=== PATIENT | male | born 1960 | race Caucasian/White ===

== ENCOUNTER 2020-08-17 19:49 | Inpatient (IN) ==
--- NOTE | 2020-08-17 20:11 | Emergency Department Note ---
Impression & Plan Dizziness, Bradycardia, DINESH (acute kidney injury), Hyperammonemia ED Provider Note NAME: BREA CHILDRESS AGE: 59 SEX: M : 1960 ARRIVES VIA: Walk-In INFORMANT: [Patient] ED PROVIDER(S): [Flex Ayoub MD] CHIEF COMPLAINT: Dizziness HISTORY OF PRESENT ILLNESS: The patient is a 59-year-old male who states that for 1.5 hours he has been dizzy and lightheaded. He feels worse to stand. No one-sided weakness, he has not had any speech slur. No fever, chills, cough. He is mildly short of breath but this has been an ongoing issue. He has not had vomiting or diarrhea or abdominal pain. The patient states that he takes 4 medications for blood pressure and, was thinking maybe these hit him too hard today. [facility] as his heart rate was about 45 and typically his heart rate is about 60-80. The patient denies any chest pain. He states he did have a fistula placed in his left upper extremity about a month ago. He is not yet using the fistula but was told that he may soon need to move to dialysis. Of note, the blood pressure at home was 110/51 per his monitor. REVIEW OF SYSTEMS: See HPI for pertinent positives and negatives. A total of ten systems were reviewed and were otherwise negative. PMHx/PSHx: See Below SOCIAL HISTORY: See Below. PHYSICAL EXAM: GENERAL: Patient is in no acute distress. HEENT: No acute trauma, normocephalic atraumatic, mucous membranes moist, no nasal congestion, no scleral icterus. NECK: No stridor, no adenopathy, no meningismus, trachea is midline. LUNGS: Clear to auscultation bilaterally, no wheeze, no rhonchi, breath sounds equal. HEART: Bradycardic, regular rhythm, no murmurs. ABDOMEN: Soft, nontender, bowel sounds positive, no hernias, no peritonitis. EXTREMITIES: No cyanosis, moderate bilateral pedal edema, full range of motion of all the joints without pain or difficulty, no signs for acute trauma. NEUROLOGIC: Oriented x 3, no acute motor or sensory deficits, no focal weakness. No speech slur or facial droop. No cerebellar dysfunction or extremity drift. SKIN: No rash, no jaundice, no diaphoresis. DIFFERENTIAL DIAGNOSIS: Infection, dehydration, metabolic abnormality, hypo/hyperglycemia, orthostasis, medication reaction, dysrhythmia, electrolyte disturbance, anemia, hypoxia, cardiac sources, intracerebral event, toxicologic issues, stroke, TIA, as well as other pathologies. EMERGENCY DEPARTMENT COURSE/PROCEDURES: ECG: Indication was dizziness. The ECG shows a sinus bradycardia with a rate of 49. There is no ST elevation, no PVCs. The QTc is 375. No old ECGs available for comparison. Continuous Cardiac Monitoring: An order was placed for continuous cardiac monitoring. The monitor shows a rate of 50 with sinus bradycardia. Orthostatic vital signs were negative. Critical Care Note: I have personally spent 36 minutes of critical care time in the direct management of this patient. This includes bedside care, inter pretation of diagnostic studies, and testing, discussion with consultants, patient, and family members, and other required patient management activities. This 36 minutes is in excess of all separately billable procedures. MEDICAL DECISION MAKING: There is no leukocytosis. The patient is somewhat anemic with a hemoglobin of 11.5. Platelet count was normal. Creatinine was quite high at 4.6. BUN was elevated at 63. The creatinine value today is higher than his baseline. Alk phos was elevated. Ammonia was elevated at 38. Patient appeared to be in a euthyroid state. ECG shows a sinus bradycardia, no ST elevation. Cardiac enzyme testing x1 is not consistent with acute cardiac injury. Chest film did not show pneumonia or CHF. Covid testing returned negative. The patient presents dizzy and somewhat weak. He was bradycardic. Orthostatic vital signs were performed and were technically negative. The patient has acute kidney injury, he does have issues with his kidneys at baseline but his creatinine number today is higher than his typical values. He is also bradycardic today and normally, his heart rate is in the 60s to 80s. I think both the renal failure and bradycardia are contributing to his complaints. I do believe hospitalization is warranted. He needs monitoring. I did speak with the patient and case management. The on-call hospitalist has been consulted. Past Med/Surg History Medical History Anemia Celiac disease follows gluten free diet Charcot foot due to diabetes mellitus Chronic kidney disease, stage 4 (severe) Cough syncope Diabetes mellitus, type 2 insulin dependent for 17yrs Gastroparesis due to secondary diabetes History of kidney stones Hyperlipidemia Hypertension Insulin pump in place Osteoarthritis Sleep apnea cpap Surgical History History of amputation of lesser toe of left foot 2nd toe History of colonoscopy History of esophagogastroduodenoscopy (EGD) History of foot surgery right, hardware in place History of surgical procedure on eye proper using laser x2 on bilt eyes History of vitrectomy left History of wisdom tooth extraction Family History Mother Family history of diabetes mellitus Grandfather (Maternal) Family history of diabetes mellitus Grandmother (Paternal) Family history of diabetes mellitus Grandmother (Maternal) Family history of diabetes mellitus Other No family history of adverse response to anesthesia Social History Smoking Status: Former smoker Second Hand Exposure: Yes (parents smoked); Hx Alcohol Use: Yes Alcohol type: other Hx Substance Use: No Preferred Language: Welsh Communication Ability: Effective Supervisor [employer] Required: No Beliefs That Will Affect Care: None Current Living Situation: Family Feels Safe at Home: Yes Assistive Devices: Cane, CPAP and Glasses Allergies Allergies Allergy/AdvReac Type Severity Reaction Status Date / Time melon Allergy Severe Anaphylaxis Verified 08/17/20 21:00 pecan nut Allergy Severe Anaphylaxis Verified 08/17/20 21:00 walnut Allergy Severe Anaphylaxis Verified 08/17/20 21:00 Opioids - Morphine Analogues Allergy Mild Vomiting Verified 08/17/20 21:00 Home Meds Home Medications Medication Instructions Recorded Confirmed cholecalciferol (vitamin D3) 1,000 unit PO BID 01/29/20 08/17/20 [Vitamin D3] insulin aspart U-100 1 sliding scale dose SUBCUT 01/29/20 08/17/20 USEASDIRECTD losartan 100 mg PO QAM 01/29/20 08/17/20 acetaminophen 650 mg PO Q12H PRN 08/17/20 08/17/20 aspirin [Aspirin Low Dose] 81 mg PO DAILY 08/17/20 08/17/20 atorvastatin 20 mg PO QPM 08/17/20 08/17/20 diclofenac sodium 2 g TOPICAL QID PRN 08/17/20 08/17/20 diltiazem HCl 360 mg PO DAILY 08/17/20 08/17/20 hydralazine 50 mg PO TID 08/17/20 08/17/20 insulin glargine [Lantus U-100 67 unit SUBCUT DAILY PRN 08/17/20 08/17/20 Insulin] loperamide 2 mg PO QID PRN 08/17/20 08/17/20 omeprazole 20 mg PO DAILY 08/17/20 08/17/20 terazosin 2 mg PO HS 08/17/20 08/17/20 torsemide 40 mg PO DAILY 08/17/20 08/17/20 Results & Data (ED) Vital Signs Vital Signs - 24 hr 08/17/20 19:51 08/17/20 20:14 08/17/20 20:25 Temperature 36.4 C L Temperature Source Temporal Artery Scan Pulse Rate - Lying 45 L Pulse Rate - Sitting 48 L Pulse Rate - Standing 61 Pulse Rate 50 L Pulse Rate from SpO2 Sensor Respiratory Rate 18 Blood Pressure - Lying 158/62 H Blood Pressure - Sitting 146/56 H Blood Pressure- Standing 142/49 H Blood Pressure 153/65 H Blood Pressure Mean 94 Blood Pressure Position Sitting Pulse Oximetry 97 96 Oxygen Delivery Method Room Air Room Air Sepsis Recent Fever Within 48 Hours No Sepsis New/Unexplained Change in Mental Status No Sepsis Action Taken by Nursing No Action Required 08/17/20 20:30 08/17/20 21:00 08/17/20 21:30 Temperature Temperature Source Pulse Rate - Lying Pulse Rate - Sitting Pulse Rate - Standing Pulse Rate 47 L 47 L 45 L Pulse Rate from SpO2 Sensor 46 L 57 L 45 L Respiratory Rate 17 13 14 Blood Pressure - Lying Blood Pressure - Sitting Blood Pressure- Standing Blood Pressure 143/55 H 163/67 H 164/69 H Blood Pressure Mean 84 99 100 Blood Pressure Position Pulse Oximetry 96 97 96 Oxygen Delivery Method Room Air Room Air Sepsis Recent Fever Within 48 Hours Sepsis New/Unexplained Change in Mental Status Sepsis Action Taken by Nursing 08/17/20 22:00 08/17/20 22:30 08/17/20 23:00 Temperature Temperature Source Pulse Rate - Lying Pulse Rate - Sitting Pulse Rate - Standing Pulse Rate 45 L 46 L 49 L Pulse Rate from SpO2 Sensor 45 L 46 L 49 L Respiratory Rate 12 14 17 Blood Pressure - Lying Blood Pressure - Sitting Blood Pressure- Standing Blood Pressure 147/63 H 160/69 H 151/64 H Blood Pressure Mean 91 99 93 Blood Pressure Position Pulse Oximetry 96 96 95 Oxygen Delivery Method Room Air Room Air Room Air Sepsis Recent Fever Within 48 Hours Sepsis New/Unexplained Change in Mental Status Sepsis Action Taken by Usp Medications Current Medication List: was personally reviewed by me Laboratory Data Attestation: I reviewed the patient's lab results. Result diagrams: 08/17/20 20:10 08/17/20 21:07 Lab Results 08/17/20 08/17/20 08/17/20 Range/Units 20:10 20:10 20:10 WBC 9.31 (4.8-10.8) K/uL RBC 3.98 L (4.7-6.1) M/uL Hgb 11.5 L (14.0-18.0) g/dL Hct 33.4 L (42-52) % MCV 83.9 (80-100) fL MCH 28.9 (25-34) pg MCHC 34.4 (32-36) g/dL RDW Std Deviation 40.0 (36.4-46.3) fL RDW Coeff of Eduardo 13.3 (11.5-14.5) % Plt Count 257 (130-400) K/uL MPV 10.5 H (7.4-10.4) fL Immature Gran % (Auto) 0.4 % Neut % (Auto) 56.1 % Lymph % (Auto) 33.3 % [place] % (Auto) 7.8 % Eos % (Auto) 2.1 % Baso % (Auto) 0.3 % Neut # (Auto) 5.21 (1.4-6.5) K/uL Lymph # (Auto) 3.10 (1.2-3.4) K/uL [place] # (Auto) 0.73 H (0.11-0.59) K/uL Eos # (Auto) 0.20 (0-0.5) K/uL Baso # (Auto) 0.03 (0-0.2) K/uL Immature Gran # (Auto) 0.04 H (0.00-0.02) K/uL Sodium 137 (136-145) mmol/L Potassium (3.5-5.1) mmol/L Chloride 106 (98-107) mmol/L Carbon Dioxide 22 (21-32) mmol/L Anion Gap 10.0 (3-11) BUN 63 H (7-18) mg/dl Creatinine 4.60 H* (0.6-1.4) mg/dl Est Cr Clr Drug Dosing 23.7 ml/min Est GFR ( Amer) 15.1 Est GFR (Non-Af Amer) 13.1 BUN/Creatinine Ratio 13.7 (10-20) Glucose 146 H (70-99) mg/dl Calcium 8.9 (8.5-10.1) mg/dl Magnesium (1.8-2.4) mg/dl Total Bilirubin 0.6 (0.2-1) mg/dl AST (15-37) U/L ALT 31 (12-78) U/L Alkaline Phosphatase 136 H (45-117) U/L Ammonia (11-32) umol/L Troponin I < 0.015 (0-0.045) ng/ml Total Protein 7.6 (6.4-8.2) gm/dl Albumin 3.6 (3.4-5.0) gm/dl Globulin 4.0 (2.5-4.0) gm/dl Albumin/Globulin Ratio 0.9 (0.9-2) TSH 3.130 (0.300-4.500) uIu/ml COVID-19 Eval Order SARS-CoV-2, RNA, NAAT (NEGATIVE) 08/17/20 08/17/20 08/17/20 Range/Units 21:07 21:07 22:40 WBC (4.8-10.8) K/uL RBC (4.7-6.1) M/uL Hgb (14.0-18.0) g/dL Hct (42-52) % MCV (80-100) fL MCH (25-34) pg MCHC (32-36) g/dL RDW Std Deviation (36.4-46.3) fL RDW Coeff of Eduardo (11.5-14.5) % Plt Count (130-400) K/uL MPV (7.4-10.4) fL Immature Gran % (Auto) % Neut % (Auto) % Lymph % (Auto) % [place] % (Auto) % Eos % (Auto) % Baso % (Auto) % Neut # (Auto) (1.4-6.5) K/uL Lymph # (Auto) (1.2-3.4) K/uL [place] # (Auto) (0.11-0.59) K/uL Eos # (Auto) (0-0.5) K/uL Baso # (Auto) (0-0.2) K/uL Immature Gran # (Auto) (0.00-0.02) K/uL Sodium (136-145) mmol/L Potassium 4.5 (3.5-5.1) mmol/L Chloride (98-107) mmol/L Carbon Dioxide (21-32) mmol/L Anion Gap (3-11) BUN (7-18) mg/dl Creatinine (0.6-1.4) mg/dl Est Cr Clr Drug Dosing ml/min Est GFR ( Amer) Est GFR (Non-Af Amer) BUN/Creatinine Ratio (10-20) Glucose (70-99) mg/dl Calcium (8.5-10.1) mg/dl Magnesium 2.4 (1.8-2.4) mg/dl Total Bilirubin (0.2-1) mg/dl AST 13 L (15-37) U/L ALT (12-78) U/L Alkaline Phosphatase (45-117) U/L Ammonia 38.0 H (11-32) umol/L Troponin I (0-0.045) ng/ml Total Protein (6.4-8.2) gm/dl Albumin (3.4-5.0) gm/dl Globulin (2.5-4.0) gm/dl Albumin/Globulin Ratio (0.9-2) TSH (0.300-4.500) uIu/ml COVID-19 Eval Order Covid19 [facility] SARS-CoV-2, RNA, NAAT (NEGATIVE) 08/17/20 Range/Units 22:40 WBC (4.8-10.8) K/uL RBC (4.7-6.1) M/uL Hgb (14.0-18.0) g/dL Hct (42-52) % MCV (80-100) fL MCH (25-34) pg MCHC (32-36) g/dL RDW Std Deviation (36.4-46.3) fL RDW Coeff of Eduardo (11.5-14.5) % Plt Count (130-400) K/uL MPV (7.4-10.4) fL Immature Gran % (Auto) % Neut % (Auto) % Lymph % (Auto) % [place] % (Auto) % Eos % (Auto) % Baso % (Auto) % Neut # (Auto) (1.4-6.5) K/uL Lymph # (Auto) (1.2-3.4) K/uL [place] # (Auto) (0.11-0.59) K/uL Eos # (Auto) (0-0.5) K/uL Baso # (Auto) (0-0.2) K/uL Immature Gran # (Auto) (0.00-0.02) K/uL Sodium (136-145) mmol/L Potassium (3.5-5.1) mmol/L Chloride (98-107) mmol/L Carbon Dioxide (21-32) mmol/L Anion Gap (3-11) BUN (7-18) mg/dl Creatinine (0.6-1.4) mg/dl Est Cr Clr Drug Dosing ml/min Est GFR ( Amer) Est GFR (Non-Af Amer) BUN/Creatinine Ratio (10-20) Glucose (70-99) mg/dl Calcium (8.5-10.1) mg/dl Magnesium (1.8-2.4) mg/dl Total Bilirubin (0.2-1) mg/dl AST (15-37) U/L ALT (12-78) U/L Alkaline Phosphatase (45-117) U/L Ammonia (11-32) umol/L Troponin I (0-0.045) ng/ml Total Protein (6.4-8.2) gm/dl Albumin (3.4-5.0) gm/dl Globulin (2.5-4.0) gm/dl Albumin/Globulin Ratio (0.9-2) TSH (0.300-4.500) uIu/ml COVID-19 Eval Order SARS-CoV-2, RNA, NAAT NEGATIVE (NEGATIVE) Imaging Data Attestation: I personally reviewed and interpreted this imaging study as follows: My Impression: Chest x-ray: There is some mild cardiomegaly, no CHF, pneumonia or pneumothorax. Discharge Plan Visit Data Chief Complaint: Dizziness Stated Complaint: LIGHTHEADED ED Provider: Flex Ayoub Discharge Problem: Dizziness, Bradycardia, DINESH (acute kidney injury), Hyperammonemia Patient Disposition: Admitted As Inpatient Condition: Fair Forms Stand Alone Forms: My [facility] Prescriptions Prescriptions: No Action losartan 100 mg Tablet 100 mg PO QAM RF: 0 insulin aspart U-100 100 unit/mL Cartridge 1 sliding scale dose SUBCUT USEASDIRECTD RF: 0 cholecalciferol (vitamin D3) [Vitamin D3] 25 mcg (1,000 unit) Tablet 1,000 unit PO BID RF: 0 hydralazine 50 mg Tablet 50 mg PO TID RF: 0 atorvastatin 40 mg Tablet 20 mg PO QPM RF: 0 Lantus U-100 Insulin 100 unit/mL Solution 67 unit SUBCUT DAILY PRN (Reason: Humalog Pump Failure) RF: 0 loperamide 2 mg Tablet 2 mg PO QID PRN (Reason: Diarrhea) RF: 0 torsemide 10 mg Tablet 40 mg PO DAILY RF: 0 aspirin [Aspirin Low Dose] 81 mg Tablet,Delayed Release (Dr/Ec) 81 mg PO DAILY RF: 0 acetaminophen 650 mg Tablet Extended Release 650 mg PO Q12H PRN (Reason: Pain) RF: 0 terazosin 2 mg Tablet 2 mg PO HS RF: 0 diltiazem HCl 360 mg Tablet Extended Release 24 Hr 360 mg PO DAILY RF: 0 diclofenac sodium 1 % Gel 2 g TOPICAL QID PRN (Reason: Joint Pain) RF: 0 omeprazole 20 mg Tablet,Delayed Release (Dr/Ec) 20 mg PO DAILY RF: 0 Referrals Referrals: Dimitry France MD [Primary Care Provider] -
[2020-08-17 20:29] LABS: Basophils # (auto) 0.03 K/uL (0-0.2); Basophils % (auto) 0.3 %; Eosinophils % (auto) 2.1 %; Hematocrit (blood only) 33.4 % (42-52); Hemoglobin 11.5 g/dL (14.0-18.0); Immature Granulocytes # (auto) 0.04 K/uL (0.00-0.02); Immature Granulocytes % (auto) 0.4 %; Lymphocytes % (auto) 33.3 %; Mean Corpuscular Hemoglobin 28.9 pg (25-34); Mean Corpuscular Hgb Conc 34.4 g/dL (32-36); Mean Corpuscular Volume 83.9 fL (80-100); Mean Platelet Volume 10.5 fL (7.4-10.4); Monocytes # (auto) 0.73 K/uL (0.11-0.59); Monocytes % (auto) 7.8 %; Neutrophils # (auto) 5.21 K/uL (1.4-6.5); Neutrophils % (auto) 56.1 %; Platelet Count 257 K/uL (130-400); RDW Coefficient of Variation 13.3 % (11.5-14.5); Red Blood Count 3.98 M/uL (4.7-6.1); White Blood Count 9.31 K/uL (4.8-10.8)
[2020-08-17 20:57] LABS: Alanine Aminotransferase 31 U/L (12-78); Albumin Globulin Ratio 0.9 (0.9-2); Albumin Level 3.6 gm/dl (3.4-5.0); Alkaline Phosphatase 136 U/L (45-117); BUN Creatinine Ratio 13.7 (10-20); Bilirubin,Total 0.6 mg/dl (0.2-1); Blood Urea Nitrogen 63 mg/dl (7-18); Calcium 8.9 mg/dl (8.5-10.1); Carbon Dioxide 22 mmol/L (21-32); Chloride 106 mmol/L (98-107); Creatinine Clr Calc Pharmacy 23.7 ml/min; Est GFR (African American) 15.1; Est GFR (Non-African American) 13.1; Glucose 146 mg/dl (70-99); Sodium 137 mmol/L (136-145); Total Protein 7.6 gm/dl (6.4-8.2); Troponin I < 0.015 ng/ml (0-0.045)
[2020-08-17 21:31] LABS: Potassium 4.5 mmol/L (3.5-5.1)
[2020-08-17 21:36] LABS: Magnesium 2.4 mg/dl (1.8-2.4)
--- NOTE | 2020-08-17 23:48 | History & Physical Report ---
Date of Service August 17, 2020 Assessment & Plan (1) DINESH (acute kidney injury): 59-year-old male past medical history significant for CKD stage IV, EVERETTE, hyperlipidemia, hypertension, DM 2, anemia of chronic disease admitted for symptomatic bradycardia and acute on chronic renal failure. Symptomatic bradycardia: - On arrival with heart rate mid 40s, now low 50s. With improvement in symptoms with increase in HR. - Patient did not endorse taking extra CCB, or extra doses of any of his other antihypertensive medications. - Troponin negative, EKG shows sinus bradycardia without other analysis. - Bradycardia suspected to be secondary to uremia from acute on chronic renal failure. Ammonia in the ER noted to be 38. - Cardiology consult requested, TTE ordered for morning. - Will hold carvedilol given bradycardia. Continue home aspirin, suspect this is for cardioprotection, however no history of CAD in chart. - Unable to get records from [place] at nighttime, would be of benefit to see last echo, most recent lab work, nephrology/cardiology notes. Acute on chronic renal failure: - [facility]9 [facility], today with creatinine of 4.6 and elevated BUN at 63. - Patient does not appear clinically dry, appears euvolemic on exam. - Of note, patient's torsemide dose was recently increased from 30 mg daily to 40 mg daily; this was done around the same time that his July 21 creatinine of 3.9 was collected. - DINESH possibly multifactorial, intrinsic renal coupled with increased diuretic dosing 3 weeks ago. - Nephrology consult placed, appreciate recommendations. - No indication for urgent dialysis, electrolytes are stable and patient did not appear to have arrhythmia on /EKG. - Torsemide dosing held in the setting of acute on chronic no failure. DM2: - History of, insulin-dependent for over 15 years with insulin pump in place. - May continue to use home insulin pump. - DM 2 diet. - Home Lantus dosing added in the event of pump compromise. HTN: - Hold torsemide, diltiazem due to DINESH and bradycardia as above. - Continue losartan and hydralazine home dosing. HLD: - Continue home atorvastatin 20 mg daily. EVERETTE: - Continue home CPAP settings qHS. CODE STATUS: Full code FEN/GI: Heart healthy, DM2, low-sodium diet DVT prophylaxis: Heparin 5000 you SQ q8h Dispo: Telemetry for continuous cardiac monitoring, pending cardiology and nephrology consults as well as TTE in a.m. (2) Anemia: (3) Sleep apnea: (4) Hyperlipidemia: (5) Chronic kidney disease, stage 4 (severe): (6) Diabetes mellitus, type 2: (7) Hypertension: (8) Symptomatic bradycardia: History of Present Illness Chief Complaint: Dizziness, low heart rate Primary Care Provider: Dimitry France MD 59-year-old male past medical history significant for CKD stage IV, EVERETTE, hyperlipidemia, hypertension, DM 2, anemia of chronic disease presented to the ER for dizziness in the setting of bradycardia to 45 on home machine. Patient reports that earlier today he was feeling dizzy and "funny", checked his blood pressure on his home blood pressure cuff which read as normal pressure but heart rate of 45, which is atypical for him as he usually runs in the 6080 range. This prompted his evaluation in the ER. ER course was significant for creatinine 4.6 (3.9 [facility]), chest x-ray without findings suggestive of infection or fluid overload, heart rate 46 on telemetry, EKG showing sinus bradycardia, COVID-19 negative, ammonia mildly elevated at 38.0. On my interview patient reports that he feels slightly better (at time of my interview patient's heart rate was 51). Denied chest pain, shortness of breath, headache, recent fevers or chills, abdominal pain, nausea. Does endorse some recent changes in medication: About 1 month ago had AV fistula placed in the left arm and around the same time his clonidine prescription was discontinued. 1 to 2 weeks following that his torsemide prescription was increased from 30 mg daily to 40 mg daily. Patient endorses having had a recent echocardiogram but could not access or locate the results on [facility]. Does not recall taking extra Cardizem, or accidentally taking extra doses of any of his home medications. For his diabetes he uses a insulin pump. Allergies Allergy/AdvReac Type Severity Reaction Status Date / Time melon Allergy Severe Anaphylaxis Verified 08/17/20 21:00 pecan nut Allergy Severe Anaphylaxis Verified 08/17/20 21:00 walnut Allergy Severe Anaphylaxis Verified 08/17/20 21:00 Opioids - Morphine Analogues Allergy Mild Vomiting Verified 08/17/20 21:00 gluten Allergy Unknown Gastrointestinal Verified 08/20/20 10:42 Upset Home Medications Medication Instructions Recorded Confirmed Type cholecalciferol (vitamin D3) 1,000 unit PO BID 01/29/20 08/17/20 History [Vitamin D3] insulin aspart U-100 1 sliding scale dose SUBCUT 01/29/20 08/17/20 History USEASDIRECTD Lantus U-100 Insulin 67 unit SUBCUT DAILY PRN 08/17/20 08/17/20 History acetaminophen 650 mg PO Q12H PRN 08/17/20 08/17/20 History aspirin [Aspirin Low Dose] 81 mg PO DAILY 08/17/20 08/17/20 History atorvastatin 20 mg PO QPM 08/17/20 08/17/20 History diclofenac sodium 2 g TOPICAL QID PRN 08/17/20 08/17/20 History hydralazine 100 mg PO BID 08/17/20 08/18/20 History loperamide 2 mg PO QID PRN 08/17/20 08/17/20 History omeprazole 20 mg PO DAILY 08/17/20 08/17/20 History terazosin 4 mg PO HS 08/17/20 08/18/20 History amlodipine [Norvasc] 10 mg PO HS #30 tab 08/20/20 Rx ferrous sulfate 325 mg PO DAILY 30 Days #30 tab 08/20/20 Rx losartan 50 mg PO QAM 30 Days #30 tab 08/20/20 Rx torsemide 20 mg PO DAILY 30 Days #30 tab 08/20/20 Rx Past Med/Surg History Medical History (Updated 08/19/20 @ 09:02 by Mikala Wolfe MD) Anemia Celiac disease follows gluten free diet Charcot foot due to diabetes mellitus Chronic kidney disease, stage 4 (severe) Cough syncope Diabetes mellitus, type 2 insulin dependent for 17yrs Gastroparesis due to secondary diabetes History of kidney stones Hyperlipidemia Hypertension Insulin pump in place Metabolic acidosis Osteoarthritis Sleep apnea cpap Surgical History History of amputation of lesser toe of left foot 2nd toe History of colonoscopy History of esophagogastroduodenoscopy (EGD) History of foot surgery right, hardware in place History of surgical procedure on eye proper using laser x2 on bilt eyes History of vitrectomy left History of wisdom tooth extraction Family History Mother Family history of diabetes mellitus Grandfather (Maternal) Family history of diabetes mellitus Grandmother (Paternal) Family history of diabetes mellitus Grandmother (Maternal) Family history of diabetes mellitus Other No family history of adverse response to anesthesia Social History Smoking Status: Former smoker Second Hand Exposure: No; Hx Alcohol Use: Yes Alcohol type: other Hx Substance Use: No Preferred Language: Slovak Communication Ability: Effective Physician Vice President Required: No Beliefs That Will Affect Care: None Current Living Situation: Family Feels Safe at Home: Yes Assistive Devices: None Review of Systems Review of Systems: All systems reviewed & are unremarkable except as noted in HPI & below Constitutional: + malaise; no fever and no chills Respiratory: no cough and no dyspnea Cardiovascular: no chest pain, no palpitations and no edema Gastrointestinal: no abdominal pain, no constipation and no diarrhea/loose stools Neurologic: + dizziness (Intermittent) Physical Exam Constitutional: well developed and + morbidly obese; no acute distress Eyes: PERRL, conjunctivae normal, anicteric sclerae ENMT: external ear and nose normal, oropharynx normal Neck: + short neck and + thick neck Respiratory: Coronary movement throughout, no wheezing, no crackles Cardiovascular: Rate/Rhythm: regular rhythm and + bradycardic Heart Sounds: no murmur Extremities: + edema (Trace to bilateral lower extremities) Gastrointestinal (Abdomen): Rotund, soft abdomen, nontender to palpation, bowel sounds present and normal Musculoskeletal: No cyanosis or clubbing, moves all limbs equally Skin: no rashes, warm and dry Neurologic: AAOx3, normal speech. Bilateral UE, LE, and face without sensory or motor deficits. No tremor. Psychiatric: A+Ox3, euthymic affect Results & Data Results & Data ([facility]) Vital Signs (Past 12 Hours) Vital Signs Temp Pulse Resp BP Pulse Ox 08/17/20 23:00 49 L 17 151/64 H 95 08/17/20 22:30 46 L 14 160/69 H 96 08/17/20 22:00 45 L 12 147/63 H 96 08/17/20 21:30 45 L 14 164/69 H 96 08/17/20 21:00 47 L 13 163/67 H 97 08/17/20 20:30 47 L 17 143/55 H 96 08/17/20 20:14 96 08/17/20 19:51 36.4 C L 50 L 18 153/65 H 97 Code Status & VTE Plan VTE Prophylaxis Plan VTE Prophylaxis will be ordered: Yes Supervising Physician Co-Signing Physician Notes Attending addendum: I have physically seen this patient, have supervised the medical residents a ctivities, and agree with the H&P unless as otherwise noted. Assessment and Plan: Symptomatic bradycardia- The patient will be admitted to telemetry for serial cardiac enzymes, serial EKG's, cardiac rhythm monitoring and a 2-D echocardiogram with Dopplers. Heart rate in the mid 40s, improved to 50s while in the ED with improvement in symptoms. Hold carvedilol. Continue aspirin Consult cardiology Acute kidney injury on chronic kidney disease- Creatinine 4.6 upon admission, [facility]9 [facility]. Hold torsemide, which was recently increased from 30 to 40 mg in the outpatient setting. Question partially associated with low cardiac output due to bradycardia Consult nephrology Remainder of orders and notations as noted Resident Activity Tracking Resident Involvement: Resident Care Provided Care Provided: Adult Hospital Medicine
[2020-08-18] MEDS ORDERED: POLYETHYLENE (MIRALAX) 17 GM PACK PO PRN (01:07)
[2020-08-18] MEDS ORDERED: ONDANSETRON INJ 2 MG/ML 2 ML VIAL IV PRN (01:07)
[2020-08-18] MEDS ORDERED: LANTUS PER UNIT CHARGE SQ PRN (01:07)
[2020-08-18] MEDS ORDERED: ACETAMINOPHEN 325 MG TAB PO PRN (01:07)
[2020-08-18] MEDS ORDERED: INSULIN ASPART SQ SCH (01:07)
[2020-08-18] MEDS ORDERED: SODIUM CHLORIDE 0.9% 500 ML IV SCH (01:07)
[2020-08-18] MEDS ORDERED: GLUCAGON FOR INJ 1 MG VIAL SQ PRN ×2 (02:30→03:00)
[2020-08-18] MEDS ORDERED: CARBOHYDRATES FOR HYPOGLYCEMIA PO PRN ×2 (02:30→03:00)
[2020-08-18] MEDS ORDERED: GLUCOSE 40% GEL 15 GM TUBE PO PRN ×2 (02:30→03:00)
[2020-08-18] MEDS ORDERED: DEXTROSE 50% 50 ML SYRINGE IV PRN ×2 (02:30→03:00)
[2020-08-18] MEDS ORDERED: GLUCOSE 10 TABS/TUBE PO PRN ×2 (02:30→03:00)
[2020-08-18] MEDS ORDERED: INSULIN HUMAN LISPRO (humaLOG) 100 UNITS/ML VIAL SC PRN (03:00)
[2020-08-18] MEDS: HEPARIN SOD 5,000 UNIT/0.5 ML VIAL SQ SCH ×3 (06:07→20:33)
[2020-08-18 06:55] LABS: Hematocrit (blood only) 29.2 % (42-52); Hemoglobin 9.9 g/dL (14.0-18.0); Mean Corpuscular Hemoglobin 28.4 pg (25-34); Mean Corpuscular Hgb Conc 33.9 g/dL (32-36); Mean Corpuscular Volume 83.7 fL (80-100); Mean Platelet Volume 10.6 fL (7.4-10.4); Platelet Count 220 K/uL (130-400); RDW Coefficient of Variation 13.3 % (11.5-14.5); Red Blood Count 3.49 M/uL (4.7-6.1); White Blood Count 9.89 K/uL (4.8-10.8)
--- NOTE | 2020-08-18 07:14 | XRay Report ---
XR chest 1V portable CLINICAL HISTORY: weakness COMPARISON STUDY: No previous studies for comparison. FINDINGS: Lung volumes are normal. There is no pneumothorax or pleural effusion. There is no evidence for pulmonary edema. No consolidation is identified. There is mild cardiomegaly. IMPRESSION: 1. No acute findings. 2. Mild cardiomegaly. ACT 112: Negative or not required by law. Electronically signed by: Eduardo Germain M.D. 08/18/2020 7:13 AM
[2020-08-18 07:36] LABS: BUN Creatinine Ratio 13.5 (10-20); Calcium 8.1 mg/dl (8.5-10.1); Creatinine Clr Calc Pharmacy 21.4 ml/min; Est GFR (African American) 14.2; Est GFR (Non-African American) 12.2
--- NOTE | 2020-08-18 07:52 | Hospitalist Progress Note ---
Date of Service August 18, 2020 Assessment & Plan (1) Symptomatic bradycardia: 2-7 HR 40's to 50's echo pending cardiology consult agree with holding diltiazem, add norvasc for BP control if needed 2-8 HR 50-70 (2) Acute kidney injury superimposed on CKD: likely pre-renal, as his dose of torsemide was recently nephrology consult agrees with holding losartan and torsemide if bicarb remains low, start sodium bicarb tabs (3) Diabetes mellitus, type 2: continuing home insulin pump (4) Hyperlipidemia: lipitor 20 (5) Hypertension: 12-8 BP poorly controlled, ranging 127/63 to 160/69 cont hydralazine (6) Obstructive sleep apnea: cont cpap (7) Anemia: Admission and Anticipated Discharge Date Admission Date: August 17, 2020 Subjective He came in last night because he was exceedingly dizzy when standing. His dizziness has improved greatly. Bradycardia has improved overnight after stopping diltiazem, which he was on for blood pressure. Edema is at baseline. Making plenty of urine, about a liter, he says Eating, ambulating. Denies chest pain, denies headache. Endorses some confusion which he believes is related to his renal failure/urem ia. Review of Systems Constitutional: no fever, no chills, no fatigue, no weakness, no anorexia, no weight loss and no weight gain Ear, Nose, Mouth, Throat: no nasal congestion, no sore throat and no dysphagia Respiratory: no cough and no dyspnea Cardiovascular: + edema; no chest pain, no dyspnea on exertion, no orthopnea and no palpitations Gastrointestinal: no abdominal pain, no nausea, no vomiting, no hematemesis, no dysphagia, no constipation, no diarrhea/loose stools, no blood in stools and no melena Genitourinary: no dysuria and no hematuria Musculoskeletal: no back pain, no joint pain, no myalgia and no muscle weakness Integumentary: no rash, no lesions, no skin ulcer, no erythema, no dry skin and no pruritus Neurologic: + dizziness; no falls, no localized weakness, no generalized weakness, no numbness, no paresthesia, no tremor(s) and no headache(s) Psychiatric: no depression, no suicidal ideation, no homicidal ideation and no anxiety Endocrine: no cold intolerance and no heat intolerance Hematologic / Lymphatic: no easy bleeding and no easy bruising Physical Exam Constitutional: well developed and well nourished; no acute distress Eyes: PERRL, conjunctivae normal, anicteric sclerae ENMT: Mouth: oral mucous membranes not dry Respiratory: normal respiratory effort; no respiratory distress and no labored breathing Auscultation: lungs clear to auscultation bilaterally; no crackles, no rales, no rhonchi and no wheezes Cardiovascular: Rate/Rhythm: regular rate and regular rhythm Heart Sounds: no murmur and no cardiac rub Vessels: normal peripheral pulses and radial pulses present; no JVD Extremities: + edema (3+ bilateral LE edema) Gastrointestinal (Abdomen): Inspection/Auscultation: abdomen normal to inspection and normal bowel sounds; abdomen not distended Percussion/Palpation: abdomen soft; abdomen nontender, no guarding, abdomen not rigid and no hepatosplenomegaly Musculoskeletal: Head/Neck/Chest: normocephalic and head atraumatic Spine: no cervical spinal tenderness, no cervical muscular tenderness, no thoracic spinal tenderness and no lumbar spinal tenderness Skin: no rashes, warm and dry Neurologic: CN's II-XI intact bilaterally and moves all extremities Motor/Sensory: no tremor and no sensory deficit Psychiatric: Orientation: alert, oriented to person, oriented to place and oriented to time Apperance: appropriately groomed; not disheveled Affect: euthymic affect; no anxious affect and no tearful affect Genitourinary: no Garces catheter Results & Data Results & Data ([facility]) Vital Signs (Past 12 Hours) Vital Signs Temp Pulse Pulse Resp BP BP Pulse Ox 08/18/20 03:43 36.6 C 50 L 18 127/63 97 08/18/20 01:15 36.9 C 57 L 152/62 H 97 08/18/20 01:07 08/18/20 00:30 48 L 13 129/47 L 94 08/18/20 00:00 51 L 13 130/49 L 95 08/17/20 23:30 49 L 16 135/66 08/17/20 23:00 49 L 17 151/64 H 95 08/17/20 22:30 46 L 14 160/69 H 96 08/17/20 22:00 45 L 12 147/63 H 96 08/17/20 21:30 45 L 14 164/69 H 96 08/17/20 21:00 47 L 13 163/67 H 97 08/17/20 20:30 47 L 17 143/55 H 96 08/17/20 20:14 96 08/17/20 19:51 36.4 C L 50 L 18 153/65 H 97 Pulse Ox 08/18/20 03:43 08/18/20 01:15 08/18/20 01:07 97 08/18/20 00:30 08/18/20 00:00 08/17/20 23:30 08/17/20 23:00 08/17/20 22:30 08/17/20 22:00 08/17/20 21:30 08/17/20 21:00 08/17/20 20:30 08/17/20 20:14 08/17/20 19:51 Laboratory Results Abnormal lab results 08/17/20 08/17/20 08/17/20 Range/Units 20:10 20:10 21:07 RBC 3.98 L (4.7-6.1) M/uL Hgb 11.5 L (14.0-18.0) g/dL Hct 33.4 L (42-52) % MPV 10.5 H (7.4-10.4) fL [place] # (Auto) 0.73 H (0.11-0.59) K/uL Immature Gran # (Auto) 0.04 H (0.00-0.02) K/uL Chloride (98-107) mmol/L Carbon Dioxide (21-32) mmol/L BUN 63 H (7-18) mg/dl Creatinine 4.60 H* (0.6-1.4) mg/dl Glucose 146 H (70-99) mg/dl Calcium (8.5-10.1) mg/dl AST 13 L (15-37) U/L Alkaline Phosphatase 136 H (45-117) U/L Ammonia (11-32) umol/L 08/17/20 08/18/20 08/18/20 Range/Units 21:07 06:35 06:35 RBC 3.49 L (4.7-6.1) M/uL Hgb 9.9 L (14.0-18.0) g/dL Hct 29.2 L (42-52) % MPV 10.6 H (7.4-10.4) fL [place] # (Auto) (0.11-0.59) K/uL Immature Gran # (Auto) (0.00-0.02) K/uL Chloride 109 H (98-107) mmol/L Carbon Dioxide 20 L (21-32) mmol/L BUN 66 H (7-18) mg/dl Creatinine 4.86 H* (0.6-1.4) mg/dl Glucose 101 H (70-99) mg/dl Calcium 8.1 L (8.5-10.1) mg/dl AST (15-37) U/L Alkaline Phosphatase (45-117) U/L Ammonia 38.0 H (11-32) umol/L Medications Administered Current Inpatient Medications Acetaminophen (Acetaminophen 325 Mg Tab) 650 mg PO Q4H PRN PRN Reason: Pain or Fever Stop: 09/17/20 01:06 Aspirin (Aspirin 81 Mg Ectab) 81 mg PO DAILY EAN Stop: 09/17/20 08:59 Atorvastatin Calcium (Atorvastatin 20 Mg Tab) 20 mg PO QPM EAN Stop: 09/17/20 20:59 Dextrose (Dextrose 50% 50 Ml Syringe) 25 - 50 ml IV UD PRN; Protocol PRN Reason: Hypoglycemia Protocol Stop: 09/17/20 02:59 Glucagon (Glucagon For Inj 1 Mg Vial) 1 mg SQ UD PRN; Protocol PRN Reason: Hypoglycemia Protocol Stop: 09/17/20 02:59 Glucose (Glucose 40% Gel 15 Gm Tube) 15 - 30 gm PO UD PRN; Protocol PRN Reason: Hypoglycemia Protocol Stop: 09/17/20 02:59 Glucose (Glucose 10 Tabs/Tube) 4 - 8 tabs PO UD PRN; Protocol PRN Reason: Hypoglycemia Protocol Stop: 09/17/20 02:59 Heparin Sodium (Porcine) (Heparin Sod 5,000 Unit/0.5 Ml Vial) 5,000 units SQ Q8 EAN Stop: 09/17/20 05:59 Last Admin: 08/18/20 06:07 Dose: 5,000 units Documented by: Hydralazine HCl (Hydralazine Tab 50 Mg Tab) 50 mg PO TID EAN Stop: 09/17/20 08:59 Insulin Glargine (Lantus Per Unit Charge) 67 units SQ DAILY PRN PRN Reason: Humalog Pump Failure Stop: 09/17/20 01:06 Insulin Human Lispro (Humalog Insulin Pump) 1 ea N/A ACHS [facility]; Protocol Stop: 09/17/20 07:29 Insulin Human Lispro (Insulin Human Lispro (Humalog) 100 Units/Ml Vial) 0 units SC PRN PRN PRN Reason: Hyperglycemia Protocol Stop: 09/17/20 02:59 Miscellaneous (Carbohydrates For Hypoglycemia ) 15 - 30 gm PO UD PRN PRN Reason: Hypoglycemia Treatment Stop: 09/17/20 02:59 Ondansetron HCl (Ondansetron Inj 2 Mg/Ml 2 Ml Vial) 4 mg IV Q6H PRN PRN Reason: Nausea Stop: 09/17/20 01:06 Pantoprazole Sodium (Pantoprazole 40 Mg Tab) 40 mg PO DAILY [facility] Stop: 09/17/20 08:59 Polyethylene Glycol (Polyethylene (Miralax) 17 Gm Pack) 17 gm PO DAILY PRN PRN Reason: Constipation Stop: 09/17/20 01:06 PG Care Time/CCT Total # of Minutes Spent Total Time Spent with Patient: Total time spent is greater than 50% in coordination of care (as documented) at patient's floor/unit and/or counseling patient: Coding Level of Care Code 73613 Subseq Hosp Care Lvl 3 Diagnoses Symptomatic bradycardia R00.1 Acute kidney injury superimposed on CKD N17.9; N18.9 Diabetes mellitus, type 2 E11.9 Hyperlipidemia E78.5 Hypertension I10 Obstructive sleep apnea G47.33 Anemia D64.9
[2020-08-18] MEDS: ASPIRIN 81 MG ECTAB PO SCH (08:14)
[2020-08-18] MEDS: PANTOprazole 40 MG TAB PO SCH (08:14)
[2020-08-18] MEDS ORDERED: hydrALAZINE TAB 50 MG TAB PO SCH (09:00)
--- NOTE | 2020-08-18 09:01 | Electrocardiogram Report ---
Test Reason : Blood Pressure : / mmHG Vent. Rate : 049 BPM Atrial Rate : 049 BPM P-R Int : 196 ms QRS Dur : 100 ms QT Int : 416 ms P-R-T Axes : 061 -13 053 degrees QTc Int : 375 ms Sinus bradycardia Otherwise normal ECG No previous ECGs available Confirmed by Gerson Zamora [id number]) on 08/18/2020 9:00:52 AM Referred By: Dimitry France Confirmed By:Gerson Zamora
[2020-08-18] MEDS ORDERED: hydrALAZINE TAB 50 MG TAB PO ONE (09:15)
--- NOTE | 2020-08-18 09:41 | Cardiology Consultation ---
Date of Consultation August 18, 2020 Assessment & Plan (1) Symptomatic sinus bradycardia: Mr. Ordoñez is a 59 year old male with a history of Insulin Requiring Type 2 Diabetes Mellitus, Hypertension, Hyperlipidemia, Obstructive Sleep Apnea, Anemia, and Stage 4 CKD who was admitted on 08/17/2020 with Symptomatic Sinus Bradycardia, Acute on Chronic Kidney Disease, and a Mildly Elevated Serum Ammonia Level. He presented to [facility] on 08/17/2020 complaining of lightheadedness x approximately 90 minutes, which worsened with standing and being upright. He felt like his 4 blood pressure medications may have "hit me extra hard yesterday". He denies any nausea, vomiting, diaphoresis, or as sociated dyspnea with his lightheadedness. He has not experienced any angina pectoris or anginal equivalent symptoms. No overt signs or symptoms of heart failure. He has not had any syncope, fainting, passing out, or loss of consciousness. His initial HR in the ER was 50 bpm, and ranged between 45 to 50 bpm in the first 5 hours that he was here. Diltiazem was discontinued at the time of the admission. His heart rate has been in the 50 to 55 bpm range overnight and this morning. Today he is feeling better than last evening, although he did have some mild lightheadedness while sitting upright to eat breakfast this morning. -- Remain off of Diltiazem. -- Continue monitoring heart rate and blood pressure as his serum level of diltiazem continues to fall. -- If BP is not controlled off of diltiazem -- consider starting Amlodipine which is less likely to cause bradycardia. (2) Hypertension: -- Continue Apresoline 100 mg b.i.d.. -- Continue Terazosin 4 mg QHS. -- Consider adding Amlodipine if blood pressure is not adequately controlled off of diltiazem. (3) Hyperlipidemia: -- Continue Lipitor 20 mg daily. (4) Acute kidney injury superimposed on CKD: -- Creatinine 4.68 mg/dl. -- Dr. Hicks is following. -- Daily BMP. Supervising Physician Co-Signing Physician Notes ADDENDUM (Dr. Zamora): Patient seen and examined. Agree with plan as outlined above by Mr. Adrianna NGUYEN. Discontinue diltiazem (which is renally metabolized), if necessary could add amlodipine (which is primarily hepatically metabolized). Heart rate is improving as diltiazem washes out, expect continued resolution of bradycardia, very unlikely he would require a pacemaker now or in the near future. Can increase activity and discharge home if he is able to ambulate without symptoms. History of Present Illness Reason for Consultation: -- Symptomatic Bradycardia. -- Hypertension. Requesting Physician: Mikala Wolfe MD Attending Physician: Gerson Zamora MD History of Present Illness Mr. Ordoñez is a 59 year old male with a history of Insulin Requiring Type 2 Diabetes Mellitus, Hypertension, Hyperlipidemia, Obstructive Sleep Apnea, Anemia, and Stage 4 CKD who was admitted on 08/17/2020 with Symptomatic Bradycardia and evidence of DINESH. He presented to [facility] on 08/17/2020 complaining of lightheadedness x approximately 90 minutes, which worsened with standing. He felt like his 4 blood pressure medications may have "hit me extra hard yesterday". He denies any chest pain, heaviness, tightness, pressure, or discomfort. He denies any nausea, vomiting, diaphoresis, or associated dyspnea. He denies any neck, jaw, back, or arm pain. He denies SOB at rest, unusual JACKSON, orthopnea, or pnd. No palpitations, syncope, fainting, or passing out. His initial HR in the ER was 50 bpm, and ranged between 45 to 50 bpm in the first 5 hours that he was here. Diltiazem has been held, and his heart rate has been in the 50 to 55 bpm range overnight and this morning. So far today he has been feeling better than last evening -- although he did have some mild lightheadedness while sitting upright to eat breakfast this morning. His lightheadedness resolves with lying down. Patient denies any recent changes in medications, fluid intake, or diet. His activity levels have been stable recently. Allergies Allergy/AdvReac Type Severity Reaction Status Date / Time melon Allergy Severe Anaphylaxis Verified 08/17/20 21:00 pecan nut Allergy Severe Anaphylaxis Verified 08/17/20 21:00 walnut Allergy Severe Anaphylaxis Verified 08/17/20 21:00 Opioids - Morphine Analogues Allergy Mild Vomiting Verified 08/17/20 21:00 Home Medications Medication Instructions Recorded Confirmed Type cholecalciferol (vitamin D3) 1,000 unit PO BID 01/29/20 08/17/20 History [Vitamin D3] insulin aspart U-100 1 sliding scale dose SUBCUT 01/29/20 08/17/20 History USEASDIRECTD losartan 100 mg PO QAM 01/29/20 08/17/20 History acetaminophen 650 mg PO Q12H PRN 08/17/20 08/17/20 History aspirin [Aspirin Low Dose] 81 mg PO DAILY 08/17/20 08/17/20 History atorvastatin 20 mg PO QPM 08/17/20 08/17/20 History diclofenac sodium 2 g TOPICAL QID PRN 08/17/20 08/17/20 History diltiazem HCl 360 mg PO DAILY 08/17/20 08/17/20 History hydralazine 100 mg PO BID 08/17/20 08/18/20 History insulin glargine [Lantus U-100 67 unit SUBCUT DAILY PRN 08/17/20 08/17/20 History Insulin] loperamide 2 mg PO QID PRN 08/17/20 08/17/20 History omeprazole 20 mg PO DAILY 08/17/20 08/17/20 History terazosin 4 mg PO HS 08/17/20 08/18/20 History torsemide 40 mg PO DAILY 08/17/20 08/17/20 History Patient History Medical History Anemia Celiac disease follows gluten free diet Charcot foot due to diabetes mellitus Chronic kidney disease, stage 4 (severe) Cough syncope Diabetes mellitus, type 2 insulin dependent for 17yrs Gastroparesis due to secondary diabetes History of kidney stones Hyperlipidemia Hypertension Insulin pump in place Osteoarthritis Sleep apnea cpap Surgical History History of amputation of lesser toe of left foot 2nd toe History of colonoscopy History of esophagogastroduodenoscopy (EGD) History of foot surgery right, hardware in place History of surgical procedure on eye proper using laser x2 on bilt eyes History of vitrectomy left History of wisdom tooth extraction Family History Family history of diabetes mellitus Mother Grandfather (Maternal) Grandmother (Paternal) Grandmother (Maternal) No family history of adverse response to anesthesia Social History Smoking Status: Former smoker Second Hand Exposure: No; Hx Alcohol Use: Yes Alcohol type: other Hx Substance Use: No Preferred Language: Polish Communication Ability: Effective Cleaner And Trimmer Required: No Beliefs That Will Affect Care: None Current Living Situation: Family Other Information That Helps Us Care for You: No Feels Safe at Home: Yes Safety Concerns: Feels Safe At This Time Assistive Devices: None Assistive Devices Comment: brace to right foot/leg Physical Exam Physical Exam: GENERAL: Patient in no acute distress. HEENT: Head is atraumatic, normocephalic. EOM's intact. Facies symmetric. No perioral cyanosis. NECK: No JVD. JVP is not elevated. Carotid upstrokes are + 2 bilaterally. No bruits are noted. CHEST/LUNGS: Clear to auscultation throughout all lung pino. No wheezes, rales, or crackles. CVS: S1 and S2 are regular, bradycardic at 55 bpm. No obvious murmurs, gallops, or rubs. PMI is nonpalpable. No lifts, heaves, or thrills. No abdominal aortic or renal bruits. ABDOMINAL EXAM: Bowel sounds are present. No masses, organomegaly, or tenderness. EXTREMITIES: No clubbing or cyanosis. No edema. Intact radial pulses bilaterally. NEUROLOGIC EXAM: Patient is awake, alert, and oriented. Pleasant and cooperative. Answers questions appropriately. Speech is clear. Normal movement in all 4 extremities. TELEMETRY: -- Sinus bradycardia overnight. -- Today HR are in the 50's to 60's. -- No cardiac pauses or high grade AV block. Results & Data ([facility]) Vital Signs (Past 12 Hours) Vital Signs Temp Pulse Pulse Resp BP BP Pulse Ox 08/18/20 08:02 36.9 C 55 L 19 146/64 H 96 08/18/20 03:43 36.6 C 50 L 18 127/63 97 08/18/20 01:15 36.9 C 57 L 152/62 H 97 08/18/20 01:07 08/18/20 00:30 48 L 13 129/47 L 94 08/18/20 00:00 51 L 13 130/49 L 95 08/17/20 23:30 49 L 16 135/66 08/17/20 23:00 49 L 17 151/64 H 95 08/17/20 22:30 46 L 14 160/69 H 96 08/17/20 22:00 45 L 12 147/63 H 96 Pulse Ox 08/18/20 08:02 08/18/20 03:43 08/18/20 01:15 08/18/20 01:07 97 08/18/20 00:30 08/18/20 00:00 08/17/20 23:30 08/17/20 23:00 08/17/20 22:30 08/17/20 22:00 Laboratory Results Laboratory Results - last 24 hr 08/17/20 08/17/20 08/17/20 20:10 20:10 20:10 WBC 9.31 RBC 3.98 L Hgb 11.5 L Hct 33.4 L MCV 83.9 MCH 28.9 MCHC 34.4 RDW Std Deviation 40.0 RDW Coeff of Eduardo 13.3 Plt Count 257 MPV 10.5 H Immature Gran % (Auto) 0.4 Neut % (Auto) 56.1 Lymph % (Auto) 33.3 Rhea % (Auto) 7.8 Eos % (Auto) 2.1 Baso % (Auto) 0.3 Neut # (Auto) 5.21 Lymph # (Auto) 3.10 Rhea # (Auto) 0.73 H Eos # (Auto) 0.20 Baso # (Auto) 0.03 Immature Gran # (Auto) 0.04 H Sodium 137 Potassium Chloride 106 Carbon Dioxide 22 Anion Gap 10.0 BUN 63 H Creatinine 4.60 H* Est Cr Clr Drug Dosing 23.7 Est GFR ( Amer) 15.1 Est GFR (Non-Af Amer) 13.1 BUN/Creatinine Ratio 13.7 Glucose 146 H POC Glucose Calcium 8.9 Magnesium Total Bilirubin 0.6 AST ALT 31 Alkaline Phosphatase 136 H Ammonia Troponin I < 0.015 Total Protein 7.6 Albumin 3.6 Globulin 4.0 Albumin/Globulin Ratio 0.9 TSH 3.130 Urine Color Urine Appearance Urine pH Ur Specific Christiana Urine Protein Urine Glucose (UA) Urine Ketones Urine Blood Urine Nitrite Urine Bilirubin Urine Urobilinogen Ur Leukocyte Esterase Urine WBC (Auto) Urine RBC (Auto) U Hyaline Cast (Auto) U Epithel Cells (Auto) Urine Bacteria (Auto) COVID-19 Eval Order SARS-CoV-2, RNA, NAAT 08/17/20 08/17/20 08/17/20 21:07 21:07 22:40 WBC RBC Hgb Hct MCV MCH MCHC RDW Std Deviation RDW Coeff of Eduardo Plt Count MPV Immature Gran % (Auto) Neut % (Auto) Lymph % (Auto) Rhea % (Auto) Eos % (Auto) Baso % (Auto) Neut # (Auto) Lymph # (Auto) Rhea # (Auto) Eos # (Auto) Baso # (Auto) Immature Gran # (Auto) Sodium Potassium 4.5 Chloride Carbon Dioxide Anion Gap BUN Creatinine Est Cr Clr Drug Dosing Est GFR ( Amer) Est GFR (Non-Af Amer) BUN/Creatinine Ratio Glucose POC Glucose Calcium Magnesium 2.4 Total Bilirubin AST 13 L ALT Alkaline Phosphatase Ammonia 38.0 H Troponin I Total Protein Albumin Globulin Albumin/Globulin Ratio TSH Urine Color Urine Appearance Urine pH Ur Specific Christiana Urine Protein Urine Glucose (UA) Urine Ketones Urine Blood Urine Nitrite Urine Bilirubin Urine Urobilinogen Ur Leukocyte Esterase Urine WBC (Auto) Urine RBC (Auto) U Hyaline Cast (Auto) U Epithel Cells (Auto) Urine Bacteria (Auto) COVID-19 Eval Order Covid19 [facility] SARS-CoV-2, RNA, NAAT 08/17/20 08/18/20 08/18/20 22:40 06:35 06:35 WBC 9.89 RBC 3.49 L Hgb 9.9 L Hct 29.2 L MCV 83.7 MCH 28.4 MCHC 33.9 RDW Std Deviation 40.0 RDW Coeff of Eduardo 13.3 Plt Count 220 MPV 10.6 H Immature Gran % (Auto) Neut % (Auto) Lymph % (Auto) Rhea % (Auto) Eos % (Auto) Baso % (Auto) Neut # (Auto) Lymph # (Auto) Rhea # (Auto) Eos # (Auto) Baso # (Auto) Immature Gran # (Auto) Sodium 140 Potassium 4.0 Chloride 109 H Carbon Dioxide 20 L Anion Gap 11.0 BUN 66 H Creatinine 4.86 H* Est Cr Clr Drug Dosing 21.4 Est GFR ( Amer) 14.2 Est GFR (Non-Af Amer) 12.2 BUN/Creatinine Ratio 13.5 Glucose 101 H POC Glucose Calcium 8.1 L Magnesium Total Bilirubin AST ALT Alkaline Phosphatase Ammonia Troponin I Total Protein Albumin Globulin Albumin/Globulin Ratio TSH Urine Color Urine Appearance Urine pH Ur Specific Christiana Urine Protein Urine Glucose (UA) Urine Ketones Urine Blood Urine Nitrite Urine Bilirubin Urine Urobilinogen Ur Leukocyte Esterase Urine WBC (Auto) Urine RBC (Auto) U Hyaline Cast (Auto) U Epithel Cells (Auto) Urine Bacteria (Auto) COVID-19 Eval Order SARS-CoV-2, RNA, NAAT NEGATIVE 08/18/20 08/18/20 07:41 09:00 WBC RBC Hgb Hct MCV MCH MCHC RDW Std Deviation RDW Coeff of Eduardo Plt Count MPV Immature Gran % (Auto) Neut % (Auto) Lymph % (Auto) Rhea % (Auto) Eos % (Auto) Baso % (Auto) Neut # (Auto) Lymph # (Auto) Rhea # (Auto) Eos # (Auto) Baso # (Auto) Immature Gran # (Auto) Sodium Potassium Chloride Carbon Dioxide Anion Gap BUN Creatinine Est Cr Clr Drug Dosing Est GFR ( Amer) Est GFR (Non-Af Amer) BUN/Creatinine Ratio Glucose POC Glucose 95 Calcium Magnesium Total Bilirubin AST ALT Alkaline Phosphatase Ammonia Troponin I Total Protein Albumin Globulin Albumin/Globulin Ratio TSH Urine Color Yellow Urine Appearance Clear Urine pH 5.0 Ur Specific Christiana 1.017 Urine Protein 3+ H Urine Glucose (UA) Trace H Urine Ketones Negative Urine Blood Negative Urine Nitrite Negative Urine Bilirubin Negative Urine Urobilinogen Negative Ur Leukocyte Esterase Negative Urine WBC (Auto) 1-5 Urine RBC (Auto) 0-4 U Hyaline Cast (Auto) Pending U Epithel Cells (Auto) 20-30 H Urine Bacteria (Auto) Negative COVID-19 Eval Order SARS-CoV-2, RNA, NAAT Diagnostic Findings CXR 08/17/2020: 1. No acute findings. 2. Mild cardiomegaly. Medications Administered Aspirin (Aspirin 81 Mg Ectab) 81 mg PO DAILY [facility] Stop: 09/17/20 08:59 Last Admin: 08/18/20 08:14 Dose: 81 mg Documented by: [id number] Heparin Sodium (Porcine) (Heparin Sod 5,000 Unit/0.5 Ml Vial) 5,000 units SQ Q8 EAN Stop: 09/17/20 05:59 Last Admin: 08/18/20 06:07 Dose: 5,000 units Documented by: [id number] Pantoprazole Sodium (Pantoprazole 40 Mg Tab) 40 mg PO DAILY EAN Stop: 09/17/20 08:59 Last Admin: 08/18/20 08:14 Dose: 40 mg Documented by: [id number] Discontinued Medications Hydralazine HCl (Hydralazine Tab 50 Mg Tab) 50 mg PO TID EAN Stop: 09/17/20 08:59 Last Admin: 08/18/20 08:15 Dose: 50 mg Documented by: [id number] Hydralazine HCl (Hydralazine Tab 50 Mg Tab) 50 mg PO 0915 ONE Stop: 08/18/20 09:16 Last Admin: 08/18/20 09:58 Dose: 50 mg Documented by: [id number] Sodium Chloride (Nss) 500 mls @ 60 mls/hr IV .[id number] [facility] Stop: 08/18/20 07:06 Last Admin: 08/18/20 02:17 Dose: 60 mls/hr Documented by: [id number] PG Care Time/CCT Total # of Minutes Spent Total Time Spent with Patient: Total time spent is greater than 50% in coordination of care (as documented) at patient's floor/unit and/or counseling patient: Coding Level of Care Code 54481 Inpt Consult Level 4 Diagnoses Symptomatic sinus bradycardia R00.1 Hypertension I10 Hyperlipidemia E78.5 Acute kidney injury superimposed on CKD N17.9; N18.9 Time Spent (min) 65
[2020-08-18 09:51] LABS: Appearance Urine Clear (Clear); Bilirubin Urine Negative (Negative); Blood Urine Negative (Negative); Color Urine Yellow; Epithelial Cell Urine Auto 20-30 /lpf (0-5); Glucose Urine UA Trace (Negative); Ketones Urine Negative (Negative); Leukocyte Esterase Urine Negative (Negative); Nitrite Urine Negative (Negative); Protein Urine 3+ (Negative); RBC Urine Automated 0-4 /hpf (0-4); Specific Gravity Urine 1.017 (1.000-1.030); Urobilinogen Urine Negative (Negative)
--- NOTE | 2020-08-18 10:04 | XCELERA ---
[id number]
[2020-08-18 10:37] LABS: Bacteria Urine Automated 1+ (Negative)
--- NOTE | 2020-08-18 11:42 | Nephrology Consultation ---
Date of Consultation August 18, 2020 Assessment & Plan (1) Acute kidney injury superimposed on CKD: 59-year-old gentleman with underlying advanced CKD, admitted with symptomatic sinus bradycardia. On admission he was found to have DINESH, creatinine 4.6 which slightly worsened to 4.9, has non gap metabolic acidosis. Baseline stage IV CKD secondary to diabetic nephropathy, baseline creatinine 3.9-4.0,ow with [facility] in [place]. DINESH most likely hemodynamically mediated with relative hypotension and bradycardia yesterday, diuretics, ARB. Has AV fistula, currently maturing. Non oliguric --continue to hold torsemide and losartan for now, continue hydralazine. Monitor Is and Os --check iron study, repeat renal panel and if bicarb remained low, will start on sodium bicarb --ALEXA 04103 units X 1 dose now --check phos --no indication for HD, left arm nephrology precaution --maintain hydration Will follow Thank you for allowing me to participate in your patient's care. It was a pleasure to see Mr. Ordoñez (2) Symptomatic sinus bradycardia: (3) Hypertension: (4) Anemia: (5) Metabolic acidosis: History of Present Illness Reason for Consultation: DINESH, CKD stage 4 Attending Physician: Mikala Wolfe MD History of Present Illness Mr. Ordoñez is a 59-year-old gentlemen with past medical history of stage IV CKD, hypertension, diabetes admitted to the hospital with symptomatic bradycardia. Nephrology consult was requested to manage DINESH and advanced CKD. EMR records are reviewed in detail during patient's visit. Danny presented to the hospital yesterday after he experienced episodes of lightheadedness and found to have hypotension and bradycardia at home. He spoke over telephone with [facility] who advised him to go to ER. At home he has been on diltiazem 360 mg daily, hydralazine 100 mg b.i.d., losartan 100 mg and torsemide 40 mg daily. Torsemide was increased around 2 weeks ago for persistent lower extremity edema. Diltiazem has been on hold since admission. A lab showed DINESH with creatinine 4.6 on admission which is slightly worsened to 4.9 this morning, K normal. UA with 3 + proteinuria, no hematuria. He has been voiding normally. Denied any recent NSAID use. Has stage IV CKD, baseline creatinine seems to be around 3.9 to 4.0. He had left brachiocephalic AV fistula placed almost a month ago, currently maturing. He follows with [facility] [place]. CKD was thought to be secondary to diabetic nephropathy, never had biopsy. Has history of diabetes for more than 10 years, with history of retinopathy. Diabetes for almost 10 years hypertension for almost 10 years as well. Has chronic lower extremity edema, has been on torsemide which was recently increased. Nonsmoker, denies alcohol intake. He works part-time, single, lives with his family close by. Has grown- up children. Has history of sleep apnea, has been using CPAP for more than 10 years. EGD and colonoscopy in January 2020, had multiple benign polyp removed but otherwise unremarkable. This morning he generally feels well, denies any shortness of breath or chest pain. He has been mostly lying in bed. Allergies Allergy/AdvReac Type Severity Reaction Status Date / Time melon Allergy Severe Anaphylaxis Verified 08/17/20 21:00 pecan nut Allergy Severe Anaphylaxis Verified 08/17/20 21:00 walnut Allergy Severe Anaphylaxis Verified 08/17/20 21:00 Opioids - Morphine Analogues Allergy Mild Vomiting Verified 08/17/20 21:00 Home Medications Medication Instructions Recorded Confirmed Type cholecalciferol (vitamin D3) 1,000 unit PO BID 01/29/20 08/17/20 History [Vitamin D3] insulin aspart U-100 1 sliding scale dose SUBCUT 01/29/20 08/17/20 History USEASDIRECTD losartan 100 mg PO QAM 01/29/20 08/17/20 History acetaminophen 650 mg PO Q12H PRN 08/17/20 08/17/20 History aspirin [Aspirin Low Dose] 81 mg PO DAILY 08/17/20 08/17/20 History atorvastatin 20 mg PO QPM 08/17/20 08/17/20 History diclofenac sodium 2 g TOPICAL QID PRN 08/17/20 08/17/20 History diltiazem HCl 360 mg PO DAILY 08/17/20 08/17/20 History hydralazine 100 mg PO BID 08/17/20 08/18/20 History insulin glargine [Lantus U-100 67 unit SUBCUT DAILY PRN 08/17/20 08/17/20 History Insulin] loperamide 2 mg PO QID PRN 08/17/20 08/17/20 History omeprazole 20 mg PO DAILY 08/17/20 08/17/20 History terazosin 4 mg PO HS 08/17/20 08/18/20 History torsemide 40 mg PO DAILY 08/17/20 08/17/20 History Patient History Medical History Anemia Celiac disease follows gluten free diet Charcot foot due to diabetes mellitus Chronic kidney disease, stage 4 (severe) Cough syncope Diabetes mellitus, type 2 insulin dependent for 17yrs Gastroparesis due to secondary diabetes History of kidney stones Hyperlipidemia Hypertension Insulin pump in place Osteoarthritis Sleep apnea cpap Surgical History History of amputation of lesser toe of left foot 2nd toe History of colonoscopy History of esophagogastroduodenoscopy (EGD) History of foot surgery right, hardware in place History of surgical procedure on eye proper using laser x2 on bilt eyes History of vitrectomy left History of wisdom tooth extraction Family History Mother Family history of diabetes mellitus Grandfather (Maternal) Family history of diabetes mellitus Grandmother (Paternal) Family history of diabetes mellitus Grandmother (Maternal) Family history of diabetes mellitus Other No family history of adverse response to anesthesia Social History Smoking Status: Former smoker Second Hand Exposure: No; Hx Alcohol Use: Yes Alcohol type: other Hx Substance Use: No Preferred Language: Citizen Of [place] Communication Ability: Effective Child Care Worker Required: No Beliefs That Will Affect Care: None Current Living Situation: Family Other Information That Helps Us Care for You: No Feels Safe at Home: Yes Safety Concerns: Feels Safe At This Time Assistive Devices: None Assistive Devices Comment: brace to right foot/leg Review of Systems Review of Systems: All systems reviewed & are unremarkable except as noted in Subjective Physical Exam Constitutional: WD/WN, vitals as above no acute distress Eyes: PERRL, conjunctivae normal, anicteric sclerae ENMT: external ear and nose normal, oropharynx normal Ears: no hearing impairment Neck: trachea midline Respiratory: normal respiratory effort, lungs clear to auscultation no cough Auscultation: no crackles, no rales and no wheezes Cardiovascular: RRR, no murmur, no edema Extremities: + AV fistula (left BC AVF with thrill and bruit.) Gastrointestinal (Abdomen): normal bowel sounds, soft, nontender, no hepatosplenomegaly Percussion/Palpation: abdomen nontender, no guarding and abdomen not rigid Musculoskeletal: Extremities: extremities normal to inspection Gait: normal gait Skin: no rashes, warm and dry Neurologic: moves all extremities and awake Psychiatric: A+Ox3, euthymic affect Results & Data ([facility]) Vital Signs (Past 12 Hours) Vital Signs Temp Pulse Pulse Resp BP BP Pulse Ox 08/18/20 09:53 51 L 08/18/20 08:02 36.9 C 55 L 19 146/64 H 96 08/18/20 03:43 36.6 C 50 L 18 127/63 97 08/18/20 01:15 36.9 C 57 L 152/62 H 97 08/18/20 01:07 08/18/20 00:30 48 L 13 129/47 L 94 08/18/20 00:00 51 L 13 130/49 L 95 Pulse Ox 08/18/20 09:53 08/18/20 08:02 08/18/20 03:43 08/18/20 01:15 08/18/20 01:07 97 08/18/20 00:30 08/18/20 00:00 PG Care Time/CCT Total # of Minutes Spent Total Time Spent with Patient: Total time spent is greater than 50% in coordination of care (as documented) at patient's floor/unit and/or counseling patient: Coding Level of Care Code 12645 Inpt Consult Level 5 Diagnoses Acute kidney injury superimposed on CKD N17.9; N18.9 Symptomatic sinus bradycardia R00.1 Hypertension I10 Anemia D64.9 Metabolic acidosis E87.2
[2020-08-18] MEDS ORDERED: EPOETIN ALFA 20,000 UNITS/ML VIAL SQ ONE (12:30)
[2020-08-18] MEDS: hydrALAZINE TAB 50 MG TAB PO SCH (20:24)
[2020-08-18] MEDS: TERAZOSIN HCL 1 MG CAP PO SCH (20:25)
[2020-08-18] MEDS: ATORVASTATIN 20 MG TAB PO SCH (20:25)
[2020-08-18] MEDS ORDERED: amLODIPine BESYLATE 5 MG TAB PO SCH (21:00)
[2020-08-19] MEDS: HEPARIN SOD 5,000 UNIT/0.5 ML VIAL SQ SCH ×3 (06:13→20:44)
[2020-08-19 07:30] LABS: Hematocrit (blood only) 30.2 % (42-52); Hemoglobin 10.3 g/dL (14.0-18.0); Mean Corpuscular Hemoglobin 28.5 pg (25-34); Mean Corpuscular Hgb Conc 34.1 g/dL (32-36); Mean Corpuscular Volume 83.4 fL (80-100); Mean Platelet Volume 10.8 fL (7.4-10.4); Platelet Count 230 K/uL (130-400); RDW Coefficient of Variation 13.1 % (11.5-14.5); Red Blood Count 3.62 M/uL (4.7-6.1); White Blood Count 8.36 K/uL (4.8-10.8)
[2020-08-19 07:58] LABS: BUN Creatinine Ratio 13.9 (10-20); Calcium 8.2 mg/dl (8.5-10.1); Creatinine Clr Calc Pharmacy 25.1 ml/min; Est GFR (African American) 16.9; Est GFR (Non-African American) 14.6; Magnesium 2.3 mg/dl (1.8-2.4); Potassium 4.4 mmol/L (3.5-5.1)
[2020-08-19] MEDS: PANTOprazole 40 MG TAB PO SCH (08:01)
[2020-08-19] MEDS: hydrALAZINE TAB 50 MG TAB PO SCH ×2 (08:01→20:43)
[2020-08-19] MEDS: ASPIRIN 81 MG ECTAB PO SCH (08:01)
[2020-08-19 08:05] LABS: Ferritin 96.7 ng/ml (8-388); Phosphorus 4.4 mg/dl (2.5-4.9)
--- NOTE | 2020-08-19 09:04 | Hospitalist Progress Note ---
Date of Service August 19, 2020 Assessment & Plan (1) Acute kidney injury superimposed on CKD: likely pre-renal, as his dose of torsemide was recently increased nephrology consult agrees with holding losartan and torsemide if bicarb remains low, start sodium bicarb tabs 2-9 Cr 4.19, bicarb 25 improving renal recs: continue amlodipine 5 mg, Resume Losartan at 50 mg /d on DC. Recommend decreasing Torsemide to 20 mg on DC, monitor for weight gain and increase dose as needed. ferrous sulphate 1 tab BID F/U [facility] BMP in one week, send to [facility] renal (2) Symptomatic bradycardia: 2-7 HR 40's to 50's echo pending cardiology consult agree with holding diltiazem, add norvasc for BP control if needed 2-8 HR 50-70 2-9 HR 70-80 bradycardia resolved with stopping diltiazem (3) Diabetes mellitus, type 2: continuing home insulin pump (4) Hyperlipidemia: lipitor 20 (5) Hypertension: 12-8 BP poorly controlled, ranging 127/63 to 160/69 cont hydralazine (6) Obstructive sleep apnea: cont cpap (7) Anemia: Admission and Anticipated Discharge Date Admission Date: August 17, 2020 Subjective Patient reports eating well, sleeping well. No complaints. Making urine. No worse confusion than yesterday. No dizziness, heart rate has improved back to normal range. Review of Systems Constitutional: no fever, no chills, no fatigue, no weakness, no anorexia, no weight loss and no weight gain Ear, Nose, Mouth, Throat: no nasal congestion, no sore throat and no dysphagia Respiratory: no cough and no dyspnea Cardiovascular: + edema; no chest pain, no dyspnea on exertion, no orthopnea and no palpitations Gastrointestinal: no abdominal pain, no nausea, no vomiting, no hematemesis, no dysphagia, no constipation, no diarrhea/loose stools, no blood in stools and no melena Genitourinary: no dysuria and no hematuria Musculoskeletal: no back pain, no joint pain, no myalgia and no muscle weakness Integumentary: no rash, no lesions, no skin ulcer, no erythema, no dry skin and no pruritus Neurologic: + dizziness; no falls, no localized weakness, no generalized weakness, no numbness, no paresthesia, no tremor(s) and no headache(s) Psychiatric: no depression, no suicidal ideation, no homicidal ideation and no anxiety Endocrine: no cold intolerance and no heat intolerance Hematologic / Lymphatic: no easy bleeding and no easy bruising Physical Exam Constitutional: well developed and well nourished; no acute distress Eyes: PERRL, conjunctivae normal, anicteric sclerae ENMT: Mouth: oral mucous membranes not dry Respiratory: normal respiratory effort; no respiratory distress and no labored breathing Auscultation: lungs clear to auscultation bilaterally; no crackles, no rales, no rhonchi and no wheezes Cardiovascular: Rate/Rhythm: regular rate and regular rhythm Heart Sounds: no murmur and no cardiac rub Vessels: normal peripheral pulses and radial pulses present; no JVD Extremities: + edema (3+ bilateral LE edema) Gastrointestinal (Abdomen): Inspection/Auscultation: abdomen normal to insp ection and normal bowel sounds; abdomen not distended Percussion/Palpation: abdomen soft; abdomen nontender, no guarding, abdomen not rigid and no hepatosplenomegaly Musculoskeletal: Head/Neck/Chest: normocephalic and head atraumatic Spine: no cervical spinal tenderness, no cervical muscular tenderness, no thoracic spinal tenderness and no lumbar spinal tenderness Skin: no rashes, warm and dry Neurologic: CN's II-XI intact bilaterally and moves all extremities Motor/Sensory: no tremor and no sensory deficit Psychiatric: Orientation: alert, oriented to person, oriented to place and oriented to time Apperance: appropriately groomed; not disheveled Affect: euthymic affect; no anxious affect and no tearful affect Results & Data Results & Data ([facility]) Vital Signs (Past 12 Hours) Vital Signs Temp Pulse Pulse Resp BP Pulse Ox 08/19/20 08:03 37.3 C 86 18 155/71 H 95 08/19/20 04:12 36.8 C 88 18 141/49 H 93 08/19/20 00:00 84 08/18/20 23:38 36.7 C 84 18 159/75 H 98 Laboratory Results Abnormal lab results 08/18/20 08/18/20 08/18/20 Range/Units 09:00 11:37 16:29 RBC (4.7-6.1) M/uL Hgb (14.0-18.0) g/dL Hct (42-52) % MPV (7.4-10.4) fL Chloride (98-107) mmol/L BUN (7-18) mg/dl Creatinine (0.6-1.4) mg/dl Glucose (70-99) mg/dl POC Glucose 114 H 160 H (70-99) mg/dl Calcium (8.5-10.1) mg/dl Transferrin (200-360) mg/dl Transferrin % Sat (20-50) % Albumin (3.4-5.0) gm/dl PTH Intact (18.4-80.1) pg/ml Urine Protein 3+ H (Negative) Urine Glucose (UA) Trace H (Negative) U Hyaline Cast (Auto) 5-10 H (0-5) /lpf U Epithel Cells (Auto) 20-30 H (0-5) /lpf Urine Bacteria (Auto) 1+ H (Negative) Granular Casts 5-10 H (0) /lpf 08/18/20 08/19/20 08/19/20 Range/Units 20: 07:00 07:00 RBC 3.62 L (4.7-6.1) M/uL Hgb 10.3 L (14.0-18.0) g/dL Hct 30.2 L (42-52) % MPV 10.8 H (7.4-10.4) fL Chloride 111 H (98-107) mmol/L BUN 58 H (7-18) mg/dl Creatinine 4.19 H D (0.6-1.4) mg/dl Glucose 111 H (70-99) mg/dl POC Glucose 173 H (70-99) mg/dl Calcium 8.2 L (8.5-10.1) mg/dl Transferrin 156 L (200-360) mg/dl Transferrin % Sat 19 L (20-50) % Albumin 3.0 L (3.4-5.0) gm/dl PTH Intact (18.4-80.1) pg/ml Urine Protein (Negative) Urine Glucose (UA) (Negative) U Hyaline Cast (Auto) (0-5) /lpf U Epithel Cells (Auto) (0-5) /lpf Urine Bacteria (Auto) (Negative) Granular Casts (0) /lpf 08/19/20 08/19/20 Range/Units 07:00 07:40 RBC (4.7-6.1) M/uL Hgb (14.0-18.0) g/dL Hct (42-52) % MPV (7.4-10.4) fL Chloride (98-107) mmol/L BUN (7-18) mg/dl Creatinine (0.6-1.4) mg/dl Glucose (70-99) mg/dl POC Glucose 137 H (70-99) mg/dl Calcium (8.5-10.1) mg/dl Transferrin (200-360) mg/dl Transferrin % Sat (20-50) % Albumin (3.4-5.0) gm/dl PTH Intact 138.7 H (18.4-80.1) pg/ml Urine Protein (Negative) Urine Glucose (UA) (Negative) U Hyaline Cast (Auto) (0-5) /lpf U Epithel Cells (Auto) (0-5) /lpf Urine Bacteria (Auto) (Negative) Granular Casts (0) /lpf Medications Administered Current Inpatient Medications Acetaminophen (Acetaminophen 325 Mg Tab) 650 mg PO Q4H PRN PRN Reason: Pain or Fever Stop: 09/17/20 01:06 Amlodipine Besylate (Amlodipine Besylate 5 Mg Tab) 5 mg PO HS EAN Stop: 09/17/20 20:59 Last Admin: 08/18/20 20:26 Dose: 5 mg Documented by: Aspirin (Aspirin 81 Mg Ectab) 81 mg PO DAILY EAN Stop: 09/17/20 08:59 Last Admin: 08/19/20 08:01 Dose: 81 mg Documented by: Atorvastatin Calcium (Atorvastatin 20 Mg Tab) 20 mg PO QPM EAN Stop: 09/17/20 20:59 Last Admin: 08/18/20 20:25 Dose: 20 mg Documented by: Dextrose (Dextrose 50% 50 Ml Syringe) 25 - 50 ml IV UD PRN; Protocol PRN Reason: Hypoglycemia Protocol Stop: 09/17/20 02:59 Glucagon (Glucagon For Inj 1 Mg Vial) 1 mg SQ UD PRN; Protocol PRN Reason: Hypoglycemia Protocol Stop: 09/17/20 02:59 Glucose (Glucose 40% Gel 15 Gm Tube) 15 - 30 gm PO UD PRN; Protocol PRN Reason: Hypoglycemia Protocol Stop: 09/17/20 02:59 Glucose (Glucose 10 Tabs/Tube) 4 - 8 tabs PO UD PRN; Protocol PRN Reason: Hypoglycemia Protocol Stop: 09/17/20 02:59 Heparin Sodium (Porcine) (Heparin Sod 5,000 Unit/0.5 Ml Vial) 5,000 units SQ Q8 EAN Stop: 09/17/20 05:59 Last Admin: 08/19/20 06:13 Dose: Not Given Documented by: Hydralazine HCl (Hydralazine Tab 50 Mg Tab) 100 mg PO BID [facility] Stop: 09/17/20 20:59 Last Admin: 08/19/20 08:01 Dose: 100 mg Documented by: Iron Sucrose 200 mg/ Sodium (Chloride) 110 mls @ 220 mls/hr IV DAILY [facility] Stop: 08/23/20 09:29 Insulin Human Lispro (Humalog Insulin Pump) 1 ea N/A ACHS [facility]; Protocol Stop: 09/17/20 07:29 Last Admin: 08/19/20 08:50 Dose: 1 ea Documented by: Insulin Human Lispro (Insulin Human Lispro (Humalog) 100 Units/Ml Vial) 0 units SC PRN PRN PRN Reason: Hyperglycemia Protocol Stop: 09/17/20 02:59 Miscellaneous (Carbohydrates For Hypoglycemia ) 15 - 30 gm PO UD PRN PRN Reason: Hypoglycemia Treatment Stop: 09/17/20 02:59 Ondansetron HCl (Ondansetron Inj 2 Mg/Ml 2 Ml Vial) 4 mg IV Q6H PRN PRN Reason: Nausea Stop: 09/17/20 01:06 Pantoprazole Sodium (Pantoprazole 40 Mg Tab) 40 mg PO DAILY EAN Stop: 09/17/20 08:59 Last Admin: 08/19/20 08:01 Dose: 40 mg Documented by: Polyethylene Glycol (Polyethylene (Miralax) 17 Gm Pack) 17 gm PO DAILY PRN PRN Reason: Constipation Stop: 09/17/20 01:06 Terazosin HCl (Terazosin Hcl 1 Mg Cap) 4 mg PO HS [facility] Stop: 09/17/20 20:59 Last Admin: 08/18/20 20:25 Dose: 4 mg Documented by: PG Care Time/CCT Total # of Minutes Spent Total Time Spent with Patient: Total time spent is greater than 50% in coordination of care (as documented) at patient's floor/unit and/or counseling patient: Coding Level of Care Code 11396 Subseq Hosp Care Lvl 2 Diagnoses Acute kidney injury superimposed on CKD N17.9; N18.9 Symptomatic bradycardia R00.1 Diabetes mellitus, type 2 E11.9 Diabetes mellitus complication status: without complication Diabetes mellitus manager terminal insulin use: unspecified care home insulin use status Hyperlipidemia E78.5 Hyperlipidemia type: unspecified Hypertension I10 Hypertension type: unspecified Obstructive sleep apnea G47.33 Anemia D64.9 Anemia type: unspecified type (1) Diabetes mellitus, type 2 Diabetes mellitus complication status: without complication Diabetes mellitus care home insulin use: unspecified manager terminal insulin use status Qualified Code(s): E11.9 - Type 2 diabetes mellitus without complications (2) Anemia Anemia type: unspecified type Qualified Code(s): D64.9 - Anemia, unspecified (3) Hyperlipidemia Hyperlipidemia type: unspecified Qualified Code(s): E78.5 - Hyperlipidemia, unspecified (4) Hypertension Hypertension type: unspecified Qualified Code(s): I10 - Essential (primary) hypertension
[2020-08-19] MEDS: IRON SUCROSE 200 MG in 0.9 % SODIUM CHLORIDE 100 ML IV SCH (09:29)
--- NOTE | 2020-08-19 10:35 | Cardiology Progress Note ---
Date of Service August 19, 2020 Assessment & Plan (1) Symptomatic sinus bradycardia: Mr. Ordoñez is a 59 year old male with a history of Insulin Requiring Type 2 Diabetes Mellitus, Hypertension, Hyperlipidemia, Obstructive Sleep Apnea, Anemia, and Stage 4 CKD who was admitted on 08/17/2020 with Symptomatic Sinus Bradycardia, Acute on Chronic Kidney Disease, and a Mildly Elevated Serum Ammonia Level. He presented to [facility] ER on 08/17/2020 with medication induced Sinus Bradycardia and he complained of Lightheadedness, which worsened with standing and being upright. He felt like his 4 blood pressure medications may have "hit me extra hard that day". He did not have any associated nausea, vomiting, diaphoresis, or dyspnea with his lightheadedness. He has not experienced any angina pectoris or anginal equivalent symptoms. No overt signs or symptoms of heart failure. He has not had any syncope, fainting, passing out, or loss of consciousness. His initial HR in the ER was 50 bpm, and ranged between 45 to 50 bpm in the first 5 hours that he was here. Patient was admitted to the PCU, and Diltiazem was discontinued at the time of the admission. His heart rate was in the 50 to 55 bpm range on his first night and yesterday morning. Overnight and today his HR has consistently been in the 70's and 80's range. He has not had any further lightheadedness at all. He is sitting upright now without symptoms, and he has been ambulating in room without lightheadedness. He denies any lightheadedness with position changes. -- Remain off of Diltiazem. -- Bradycardia has resolved. -- BP reading are elevated, start Amlodipine and restart Losartan at 50 mg daily as per Dr. Hicks. -- Patient is stable from a cardiac standpoint for discharge to home. (2) Hypertension: -- Continue Apresoline 100 mg b.i.d.. -- Continue Terazosin 4 mg QHS. -- Start Amlodipine and restart Losartan at 50 mg daily. (3) Hyperlipidemia: -- Continue Lipitor 20 mg daily. (4) Acute kidney injury superimposed on CKD: -- Creatinine has improved, currently 4.19 mg/dl, down from 4.68 mg/dl yesterday. -- Follow-up laboratories as an outpatient. -- Dr. Hicks is following. Admission and Anticipated Discharge Date Admission Date: August 17, 2020 Subjective Mr. Ordoñez is a 59 year old male with a history of Insulin Requiring Type 2 Diabetes Mellitus, Hypertension, Hyperlipidemia, Obstructive Sleep Apnea, Anemia, and Stage 4 CKD who was admitted on 08/17/2020 with Symptomatic Sinus Bradycardia, Acute on Chronic Kidney Disease, and a Mildly Elevated Serum Ammonia Level. He presented to [facility] ER on 08/17/2020 complaining of lightheadedness x approximately 90 minutes, which worsened with standing and being upright and his medication induced bradycardia (HR's in low 50's upper 40's) likely contributed to this. Diltiazem was discontinued at the time of the admission. His heart rate was in the 50 to 55 bpm range on his first night and yesterday morning. Today his HR has consistently been in the 70's and 80's range. He has not had any further lightheadedness at all. He is sitting upright now without symptoms, and he has been ambulating in room without lightheadedness. He denies any lightheadedness with position changes. Patient has not experienced any angina pectoris or anginal equivalent symptoms, overt signs or symptoms of heart failure, nor has he had any symptoms suggestive of dysrhythmia. Patient offers no complaints or concerns today. He is feeling well. He will finish getting a dose IV iron and then he will be discharged from the hospital. Review of Systems Review of Systems: All systems reviewed & are unremarkable except as noted in Subjective Physical Exam Physical Exam: GENERAL: Patient in no acute distress. HEENT: Head is atraumatic, normocephalic. EOM's intact. Facies symmetric. No perioral cyanosis. NECK: No JVD. JVP is not elevated. Carotid upstrokes are + 2 bilaterally. No bruits are noted. CHEST/LUNGS: Clear to auscultation throughout all lung pino. No wheezes, rales, or crackles. CVS: S1 and S2 are regular, bradycardic at 72 bpm. No obvious murmurs, gallops, or rubs. PMI is nonpalpable. No lifts, heaves, or thrills. No abdominal aortic or renal bruits. ABDOMINAL EXAM: Bowel sounds are present. No masses, organomegaly, or tenderness. EXTREMITIES: No clubbing or cyanosis. No edema. Intact radial pulses bilaterally. NEUROLOGIC EXAM: Patient is awake, alert, and oriented. Pleasant and cooperative. Answers questions appropriately. Speech is clear. Normal movement in all 4 extremities. TELEMETRY: -- NSR with rates in the 70's to 80's. -- No cardiac pauses or high grade AV block. -- No tachyarrhythmias. Results & Data ([facility]) Vital Signs (Past 12 Hours) Vital Signs Temp Pulse Pulse Resp BP Pulse Ox 08/19/20 09:02 82 08/19/20 08:03 37.3 C 86 18 155/71 H 95 08/19/20 04:12 36.8 C 88 18 141/49 H 93 08/19/20 00:00 84 08/18/20 23:38 36.7 C 84 18 159/75 H 98 Laboratory Results Laboratory Results - last 24 hr 08/18/20 08/18/20 08/18/20 11:37 16:29 20:09 WBC RBC Hgb Hct MCV MCH MCHC RDW Std Deviation RDW Coeff of Eduardo Plt Count MPV Sodium Potassium Chloride Carbon Dioxide Anion Gap BUN Creatinine Est Cr Clr Drug Dosing Est GFR ( Amer) Est GFR (Non-Af Amer) BUN/Creatinine Ratio Glucose POC Glucose 114 H 160 H 173 H Calcium Phosphorus Magnesium Iron Transferrin Transferrin % Sat Ferritin Albumin PTH Intact 08/19/20 08/19/20 08/19/20 07:00 07:00 07:00 WBC 8.36 RBC 3.62 L Hgb 10.3 L Hct 30.2 L MCV 83.4 MCH 28.5 MCHC 34.1 RDW Std Deviation 40.0 RDW Coeff of Eduardo 13.1 Plt Count 230 MPV 10.8 H Sodium 142 Potassium 4.4 Chloride 111 H Carbon Dioxide 25 Anion Gap 6.0 BUN 58 H Creatinine 4.19 H D Est Cr Clr Drug Dosing 25.1 Est GFR ( Amer) 16.9 Est GFR (Non-Af Amer) 14.6 BUN/Creatinine Ratio 13.9 Glucose 111 H POC Glucose Calcium 8.2 L Phosphorus 4.4 Magnesium 2.3 Iron 42 Transferrin 156 L Transferrin % Sat 19 L Ferritin 96.7 Albumin 3.0 L PTH Intact 138.7 H 08/19/20 07:40 WBC RBC Hgb Hct MCV MCH MCHC RDW Std Deviation RDW Coeff of Eduardo Plt Count MPV Sodium Potassium Chloride Carbon Dioxide Anion Gap BUN Creatinine Est Cr Clr Drug Dosing Est GFR ( Amer) Est GFR (Non-Af Amer) BUN/Creatinine Ratio Glucose POC Glucose 137 H Calcium Phosphorus Magnesium Iron Transferrin Transferrin % Sat Ferritin Albumin PTH Intact PG Care Time/CCT Total # of Minutes Spent Total Time Spent with Patient: Total time spent is greater than 50% in coordination of care (as documented) at patient's floor/unit and/or counseling patient:20 Coding Level of Care Code 25773 Subseq Hosp Care Lvl 2 Diagnoses Symptomatic sinus bradycardia R00.1 Hypertension I10 Hypertension type: unspecified Hyperlipidemia E78.5 Hyperlipidemia type: unspecified Acute kidney injury superimposed on CKD N17.9; N18.9 (1) Hyperlipidemia Hyperlipidemia type: unspecified Qualified Code(s): E78.5 - Hyperlipidemia, unspecified (2) Hypertension Hypertension type: unspecified Qualified Code(s): I10 - Essential (primary) hypertension
--- NOTE | 2020-08-19 11:47 | Nephrology Progress Note ---
Date of Service August 19, 2020 Assessment & Plan (1) Acute kidney injury superimposed on CKD: 59-year-old gentleman with underlying advanced CKD, admitted with symptomatic sinus bradycardia. On admission he was found to have DINESH, creatinine 4.6 which slightly worsened to 4.9, has non gap metabolic acidosis. Baseline stage IV CKD secondary to diabetic nephropathy, baseline creatinine 3.9-4.0,ow with [facility] in [place]. DINESH most likely hemodynamically mediated with relative hypotension and bradycardia yesterday, diuretics, ARB. Has AV fistula, currently maturing. Non oliguric. DINESH resolved, cr close to b/l. --repeat renal panel in a week, report send to his [facility] at [facility] --continue amlodipine 5 mg, Resume Losartan at 50 mg /d on DC. Recommend decreasing Torsemide to 20 mg on DC, monitor for weight gain and increase dose as needed. --ALEXA 70820 units X 1 dose given on 08/18/20, on venofer daily while in hospital, after DC, take Ferrous sulphate 1 tab BID --maintain hydration --F/U with his [employer] after DC. No indication for HD at this time. In future when he is close to needing HD, he knows to contact my office to set up outpt HD at [facility]. Will follow while inpatient but OK to be DC. (2) Symptomatic sinus bradycardia: (3) Hypertension: (4) Anemia: (5) Metabolic acidosis: Admission and Anticipated Discharge Date Admission Date: August 17, 2020 Subjective Danny was seen and examined this am. Overall feeling well, asymptomatic. HR improved. Cr improved, close to baseline, electrolyte acceptable. BP high. Review of Systems Review of Systems: All systems reviewed & are unremarkable except as noted in Subjective Physical Exam Constitutional: WD/WN, vitals as above no acute distress Respiratory: normal respiratory effort, lungs clear to auscultation no cough Auscultation: no crackles, no rales and no wheezes Cardiovascular: RRR, no murmur, no edema Extremities: + AV fistula (left BC AVF with thrill and bruit.) Skin: no rashes, warm and dry Neurologic: moves all extremities and awake Psychiatric: A+Ox3, euthymic affect Results & Data ([facility]) Vital Signs (Past 12 Hours) Vital Signs Temp Pulse Pulse Resp BP Pulse Ox 08/19/20 09:02 82 08/19/20 08:03 37.3 C 86 18 155/71 H 95 08/19/20 04:12 36.8 C 88 18 141/49 H 93 08/19/20 00:00 84 PG Care Time/CCT Total # of Minutes Spent Total Time Spent with Patient: Total time spent is greater than 50% in coordination of care (as documented) at patient's floor/unit and/or counseling patient: Coding Level of Care Code 38653 Subseq Hosp Care Lvl 3 Diagnoses Acute kidney injury superimposed on CKD N17.9; N18.9 Symptomatic sinus bradycardia R00.1 Hypertension I10 Hypertension type: unspecified Anemia D64.9 Anemia type: unspecified type Metabolic acidosis E87.2 (1) Hypertension Hypertension type: unspecified Qualified Code(s): I10 - Essential (primary) hypertension (2) Anemia Anemia type: unspecified type Qualified Code(s): D64.9 - Anemia, unspecified
[2020-08-19] MEDS: ATORVASTATIN 20 MG TAB PO SCH (20:42)
[2020-08-19] MEDS: TERAZOSIN HCL 1 MG CAP PO SCH (20:43)
[2020-08-19] MEDS ORDERED: amLODIPine BESYLATE 5 MG TAB PO SCH (21:00)
[2020-08-20 07:48] LABS: Albumin Level 3.1 gm/dl (3.4-5.0); BUN Creatinine Ratio 12.3 (10-20); Calcium 8.8 mg/dl (8.5-10.1); Creatinine Clr Calc Pharmacy 26.3 ml/min; Est GFR (African American) 18.1; Est GFR (Non-African American) 15.6; Potassium 4.2 mmol/L (3.5-5.1)
[2020-08-20 08:03] LABS: Hematocrit (blood only) 30.5 % (42-52); Hemoglobin 10.3 g/dL (14.0-18.0); Mean Corpuscular Hemoglobin 28.5 pg (25-34); Mean Corpuscular Hgb Conc 33.8 g/dL (32-36); Mean Corpuscular Volume 84.3 fL (80-100); Mean Platelet Volume 10.7 fL (7.4-10.4); Platelet Count 240 K/uL (130-400); RDW Coefficient of Variation 13.2 % (11.5-14.5); RDW Standard Deviation 40.1 fL (36.4-46.3); Red Blood Count 3.62 M/uL (4.7-6.1); White Blood Count 6.07 K/uL (4.8-10.8)
[2020-08-20] MEDS: HEPARIN SOD 5,000 UNIT/0.5 ML VIAL SQ SCH ×2 (08:16→14:27)
[2020-08-20] MEDS: ASPIRIN 81 MG ECTAB PO SCH (08:17)
[2020-08-20] MEDS: hydrALAZINE TAB 50 MG TAB PO SCH (08:17)
[2020-08-20] MEDS: PANTOprazole 40 MG TAB PO SCH (08:17)
[2020-08-20] MEDS: IRON SUCROSE 200 MG in 0.9 % SODIUM CHLORIDE 100 ML IV SCH (08:17)
[2020-08-20] MEDS ORDERED: LOSARTAN POTASSIUM 50 MG TAB PO SCH (09:00)
--- NOTE | 2020-08-20 09:46 | Discharge Summary ---
Date of Service August 20, 2020 Admission HPI Per Admitting Provider 59-year-old male past medical history significant for CKD stage IV, EVERETTE, hyperlipidemia, hypertension, DM 2, anemia of chronic disease presented to the ER for dizziness in the setting of bradycardia to 45 on home machine. Patient reports that earlier today he was feeling dizzy and "funny", checked his blood pressure on his home blood pressure cuff which read as normal pressure but heart rate of 45, which is atypical for him as he usually runs in the 6080 range. This prompted his evaluation in the ER. ER course was significant for creatinine 4.6 (3.9 [facility]), chest x-ray without findings suggestive of infection or fluid overload, heart rate 46 on telemetry, EKG showing sinus bradycardia, COVID-19 negative, ammonia mildly elevated at 38.0. On my interview patient reports that he feels slightly better (at time of my interview patient's heart rate was 51). Denied chest pain, shortness of breath, headache, recent fevers or chills, abdominal pain, nausea. Does endorse some recent changes in medication: About 1 month ago had AV fistula placed in the left arm and around the same time his clonidine prescription was discontinued. 1 to 2 weeks following that his torsemide prescription was increased from 30 mg daily to 40 mg daily. Patient endorses having had a recent echocardiogram but could not access or locate the results on [facility]. Does not recall taking extra Cardizem, or accidentally taking extra doses of any of his home medications. For his diabetes he uses a insulin pump. Principal Diagnosis DINESH on CKD bradycardia Discharge Exam Constitutional well developed and well nourished; no acute distress Eyes PERRL, conjunctivae normal, anicteric sclerae ENMT Mouth: oral mucous membranes not dry Respiratory normal respiratory effort; no respiratory distress and no labored breathing Auscultation: lungs clear to auscultation bilaterally; no crackles, no rales, no rhonchi and no wheezes Cardiovascular Rate/Rhythm: regular rate and regular rhythm Heart Sounds: no murmur and no cardiac rub Vessels: normal peripheral pulses and radial pulses present; no JVD Extremities: + edema (3+ bilateral LE edema) Gastrointestinal (Abdomen) Inspection/Auscultation: abdomen normal to inspection and normal bowel sounds; abdomen not distended Percussion/Palpation: abdomen soft; abdomen nontender, no guarding, abdomen not rigid and no hepatosplenomegaly Musculoskeletal Head/Neck/Chest: normocephalic and head atraumatic Spine: no cervical spinal tenderness, no cervical muscular tenderness, no thoracic spinal tenderness and no lumbar spinal tenderness Skin no rashes, warm and dry Neurologic CN's II-XI intact bilaterally and moves all extremities Motor/Sensory: no tremor and no sensory deficit Psychiatric Orientation: alert, oriented to person, oriented to place and oriented to time Apperance: appropriately groomed; not disheveled Affect: euthymic affect; no anxious affect and no tearful affect Discharge Data Allergies Allergy/AdvReac Type Severity Reaction Status Date / Time melon Allergy Severe Anaphylaxis Verified 08/17/20 21:00 pecan nut Allergy Severe Anaphylaxis Verified 08/17/20 21:00 walnut Allergy Severe Anaphylaxis Verified 08/17/20 21:00 Opioids - Morphine Analogues Allergy Mild Vomiting Verified 08/17/20 21:00 gluten Allergy Unknown Gastrointestinal Verified 08/20/20 10:42 Upset Consultations 08/17/20 22:12 ED Decision to Admit Stat 08/17/20 23:47 Consult Cardiology Routine Consult Nephrology Routine Hospital Course (1) Acute kidney injury superimposed on CKD: likely pre-renal, as his dose of torsemide was recently increased nephrology consult agrees with holding losartan and torsemide if bicarb remains low, start sodium bicarb tabs 2-9 Cr 4.19, bicarb 25 improving renal recs: continue amlodipine 5 mg, Resume Losartan at 50 mg /d on DC. Recommend decreasing Torsemide to 20 mg on DC, monitor for weight gain and increase dose as needed. ferrous sulphate 1 tab BID F/U [facility] BMP in one week, send to [facility] renal 2-10 Cr 3.97 today, stable for discharge (2) Symptomatic bradycardia: 2-7 HR 40's to 50's echo pending cardiology consult agree with holding diltiazem, add norvasc for BP control if needed 2-8 HR 50-70 2-9 HR 70-80 bradycardia resolved with stopping diltiazem (3) Diabetes mellitus, type 2: continuing home insulin pump (4) Hyperlipidemia: lipitor 20 (5) Hypertension: 12-8 BP poorly controlled, ranging 127/63 to 160/69 cont hydralazine (6) Obstructive sleep apnea: cont cpap (7) Anemia: Total Time Total Time Spent Total Time Spent (In Minutes): 40 Total Time Includes: Examination of the Patient, Discharge Planning, Medication Reconciliation and Communication With Other Providers Discharge Plan Discharge Items Patient Disposition: Home - Self-Care Reason For Visit: SYMPTOMATIC BRADYCARDIA, ARF Discharge Diagnosis: acute on chronic kidney injury bradycardia Condition on Discharge: Fair Activity: Resume your previous activity Non-emergency contact: Primary Care Provider Call non-emergency contact if: you have any medication questions Follow-up/Referrals: [facility] [Other] (Please fax BMP results to [facility] 1 week after discharge) Dimitry France MD [Primary Care Provider] - (within one week of discharge, have BMP drawn and fax to [facility] data collection technician) Diet: Regular Addtl Attending Provider Instructions: For your kidney disease: You were treated for dehydration that was caused by increasing your torsemide dose Your kidney function returned to your baseline by withholding the torsemide while you were hospitalized At home, you can take torsemide 20mg by mouth daily The data collection technician would like you to start taking ferrous sulphate 1 tab twice daily to help with your anemia Follow up with your data collection technician [facility] within one month For your high blood pressure: We have stopped your diltiazem because it was causing slow heart rate To help control your blood pressure, you can start taking amlodipine 10mg by mouth daily at bedtime Start taking losartan 50mg by mouth daily Have a basic metabolic panel (BMP) drawn in one week and have the results faxed to your data collection technician at [facility] Pending Studies at Discharge: No Stand-Alone Forms: My [facility] [employer], Smoking Cessation Medications and DC Order Prescriptions: New amlodipine [Norvasc] 10 mg tablet 10 mg PO HS Qty: 30 RF: 3 losartan 50 mg Tablet 50 mg PO QAM 30 Days Qty: 30 RF: 3 torsemide 20 mg tablet 20 mg PO DAILY 30 Days Qty: 30 RF: 2 ferrous sulfate 325 mg (65 mg iron) tablet 325 mg PO DAILY 30 Days Qty: 30 RF: 0 Continued insulin aspart U-100 100 unit/mL Cartridge 1 sliding scale dose SUBCUT USEASDIRECTD RF: 0 cholecalciferol (vitamin D3) [Vitamin D3] 25 mcg (1,000 unit) Tablet 1,000 unit PO BID RF: 0 hydralazine 50 mg Tablet 100 mg PO BID RF: 0 atorvastatin 40 mg Tablet 20 mg PO QPM RF: 0 Lantus U-100 Insulin 100 unit/mL Solution 67 unit SUBCUT DAILY PRN (Reason: Humalog Pump Failure) RF: 0 loperamide 2 mg Tablet 2 mg PO QID PRN (Reason: Diarrhea) RF: 0 aspirin [Aspirin Low Dose] 81 mg Tablet,Delayed Release (Dr/Ec) 81 mg PO DAILY RF: 0 acetaminophen 650 mg Tablet Extended Release 650 mg PO Q12H PRN (Reason: Pain) RF: 0 terazosin 2 mg Tablet 4 mg PO HS RF: 0 diclofenac sodium 1 % Gel 2 g TOPICAL QID PRN (Reason: Joint Pain) RF: 0 omeprazole 20 mg Tablet,Delayed Release (Dr/Ec) 20 mg PO DAILY RF: 0 Discontinued losartan 100 mg Tablet 100 mg PO QAM RF: 0 torsemide 10 mg Tablet 40 mg PO DAILY RF: 0 diltiazem HCl 360 mg Tablet Extended Release 24 Hr 360 mg PO DAILY RF: 0 Discharge Orders: Discharge Order (Routine); Ordered 08/20/20 Ordered By: Mikala Wolfe Admission Data Admit Date/Time: 08/17/20 23:47 Attending Provider: Mikala Wolfe Admit Provider: Paula Smith Primary Care Provider: Dimitry France Other Providers: [facility] ; Fransisco Rose ; Mariama Hicks ; Mark Fregoso Coding Level of Care Code D/C Day Management >30 mins Diagnoses Acute kidney injury superimposed on CKD N17.9; N18.9 Symptomatic bradycardia R00.1 Diabetes mellitus, type 2 E11.9 Diabetes mellitus complication status: without complication Diabetes mellitus longterm insulin use: unspecified terminal operations supervisor insulin use status Hyperlipidemia E78.5 Hyperlipidemia type: unspecified Hypertension I10 Hypertension type: unspecified Obstructive sleep apnea G47.33 Anemia D64.9 Anemia type: unspecified type
[2020-08-20] MEDS ORDERED: CALCITRIOL 0.25 MCG CAPSULE PO SCH (10:00)
--- NOTE | 2020-08-20 10:21 | Nephrology Progress Note ---
Date of Service August 20, 2020 Assessment & Plan (1) Acute kidney injury superimposed on CKD: 59-year-old gentleman with underlying advanced CKD, admitted with symptomatic sinus bradycardia. On admission he was found to have DINESH, creatinine 4.6 which slightly worsened to 4.9, has non gap metabolic acidosis. Baseline stage IV CKD secondary to diabetic nephropathy, baseline creatinine 3.9-4.0,ow with [facility] in [place]. DINESH most likely hemodynamically mediated with relative hypotension and bradycardia yesterday, diuretics, ARB. Has AV fistula, currently maturing. Non oliguric. DINESH resolved, cr close to b/l. -- Resume Losartan at 50 mg /d. Recommend decreasing Torsemide to 20 mg on DC, monitor for weight gain and increase dose as needed. --start Calcitriol 0.25 mcg 3 times a week --repeat renal panel in a week, report send to his [facility]er at [facility] [address] units X 1 dose given on 08/18/20, on venofer daily while in hospital, after DC, take Ferrous sulphate 1 tab BID --maintain hydration --F/U with his Brick Cleaner after DC. No indication for HD at this time. In future when he is close to needing HD, he knows to contact my office to set up outpt HD at [place] [facility]. Will follow while inpatient but OK to be DC. (2) Symptomatic sinus bradycardia: (3) Hypertension: (4) Anemia: (5) Metabolic acidosis: Admission and Anticipated Discharge Date Admission Date: August 17, 2020 Subjective Danny was seen and examined this am. Had BBG low this am, was not feeling well, now better as BBG improved with OJ. HR improved. Cr improved, close to baseline, electrolyte acceptable. BP high. Review of Systems Review of Systems: All systems reviewed & are unremarkable except as noted in Subjective Physical Exam Constitutional: WD/WN, vitals as above no acute distress Respiratory: normal respiratory effort, lungs clear to auscultation no cough Auscultation: no crackles, no rales and no wheezes Cardiovascular: RRR, no murmur, no edema Extremities: + AV fistula (left BC AVF with thrill and bruit.) Skin: no rashes, warm and dry Neurologic: moves all extremities and awake Psychiatric: A+Ox3, euthymic affect Results & Data ([facility]) Vital Signs (Past 12 Hours) Vital Signs Temp Pulse Resp BP Pulse Ox 08/20/20 07:24 36.4 C L 80 19 128/61 96 08/20/20 05:00 36.5 C 68 18 134/61 95 08/19/20 23:54 36.9 C 73 19 167/77 H 98 PG Care Time/CCT Total # of Minutes Spent Total Time Spent with Patient: Total time spent is greater than 50% in coordination of care (as documented) at patient's floor/unit and/or counseling patient: Coding Level of Care Code 94339 Subseq Hosp Care Lvl 3 Diagnoses Acute kidney injury superimposed on CKD N17.9; N18.9 Symptomatic sinus bradycardia R00.1 Hypertension I10 Hypertension type: unspecified Anemia D64.9 Anemia type: unspecified type Metabolic acidosis E87.2 (1) Hypertension Hypertension type: unspecified Qualified Code(s): I10 - Essential (primary) hypertension (2) Anemia Anemia type: unspecified type Qualified Code(s): D64.9 - Anemia, unspecified
--- NOTE | 2020-08-25 22:29 | Billing Data ---
Date of Service August 25, 2020 Coding Level of Care Code 42439 Initial Inpt Care Lvl 3
== END 2020-08-20 15:58 | disposition home or self-care (01) | DRG 309 ==
LOC: ED 19:49 → SUATTDRO 23:47 → 2S 23:47